=== PATIENT | male | born 1950 | race Caucasian/White ===

== ENCOUNTER 2018-01-05 23:18 | Observation (INO) | payer OTHER, MEDICARE ==
--- NOTE | 2018-01-06 00:50 | PDOC ---
History of Present Illness <Ursula Hernández - Last Filed: 01/06/18 05:14> - General History Source: Patient Exam Limitations: No Limitations - History of Present Illness Initial Comments: 01/06/18 01:49 67 y/o man with h/o HTN, HLD, CAD s/p PCI with 2 stents, DM, Glaucoma, RACHEL, BPH s/p bladder polypectomy and laser therapy presents to the ED for multiple episodes of alana hematuria since 10:30am this morning. Patient states that he has been yearly episodes of hematuria on and off for the past 15 years. Denies weakness, dysuria or abdominal pain. Urologist is Dr. Chopra. Due for a cytoscopy in January. 01/06/18 01:57 <Rich Casanova - Last Filed: 01/06/18 06:56> - General Chief Complaint: Hematuria Stated Complaint: PAIN Time Seen by Provider: 01/06/18 00:46 Past History <Ursula Hernández - Last Filed: 01/06/18 05:14> - Past Medical History Anemia: No Asthma: No Cancer: No Cardiac Disorders: Yes ([place] 2010/ stents) CVA: No COPD: No CHF: No Dementia: No Diabetes: No GI Disorders: Yes (HEMORRHOIDS,RECTAL BLEEDING) Disorders: Yes (BPH) HTN: Yes Hypercholesterolemia: Yes Liver Disease: No Seizures: No Thyroid Disease: No - Surgical History Abdominal Surgery: No Appendectomy: No Cardiac Surgery: Yes (CARDIAC STENT X2, 2009, 2010) Cholecystectomy: No Lung Surgery: No Neurologic Surgery: No Orthopedic Surgery: No - Immunization History Immunization Up to Date: Yes - Suicide/Smoking/Psychosocial Hx Smoking Status: No Smoking History: Never smoked Number of Cigarettes Smoked Daily: 0 Cigars Per Day: 0 Hx Alcohol Use: No Drug/Substance Use Hx: No Substance Use Type: None Hx Substance Use Treatment: No <Rich Casanova - Last Filed: 01/06/18 06:56> - Past Medical History Allergies/Adverse Reactions: Allergies Allergy/AdvReac Type Severity Reaction Status Date / Time No Known Drug Allergies Allergy Verified 01/05/18 23:27 Home Medications: Ambulatory Orders Amlodipine Besylate [Norvasc -] 5 mg PO DAILY 01/05/18 Ascorbate Calcium [Vitamin C] 500 mg PO DAILY 01/05/18 Bimatoprost [Lumigan] 1 drop IO DAILY 01/05/18 Carvedilol [Coreg -] 12.5 mg PO BID 01/05/18 Cholecalciferol (Vitamin D3) [Vitamin D3 -] 100 unit PO BID 01/05/18 Dicyclomine HCl [Bentyl -] 20 mg PO BID 01/05/18 Docusate Sodium [Colace] 300 mg PO HS 01/05/18 Dorzolamide HCl [Trusopt] 1 drop OS BID 01/05/18 Eplerenone [Inspra] 25 mg PO DAILY 01/05/18 Fluticasone Prop 0.05% Nasal [Flonase -] 1 - 2 spray NS DAILY 01/05/18 Gemfibrozil [Lopid -] 600 mg PO BID 01/05/18 Inulin/Chromium Picolinate [Fiber Gummies] 1 each PO BID 01/05/18 Multivit-Min/Iron Fum/Folic AC [Nptnh-Jpghumv-Ztoddrwv Tablet] 1 each PO DAILY 01/05/18 [place]-3/Dha/Epa/Fish Oil [Fish Oil 1,200 mg Softgel] 1 each PO BID 01/05/18 Prasterone (Dhea)/Calcium Carb [Dhea 50 mg Tablet] 1 each PO DAILY 01/05/18 Sacubitril/Valsartan [Entresto 97 mg-103 mg Tablet] 1 each PO BID 01/05/18 Silodosin [Rapaflo] 8 mg PO DAILY 01/05/18 Ubidecarenone/Vit E Acet [Co Q-10 100 mg Softgel] 1 each PO BID 01/05/18 Review of Systems - Review of Systems Able to Perform ROS?: Yes Is the patient limited [place] proficient: No Constitutional: No: Symptoms Reported HEENTM: No: Symptoms Reported Respiratory: No: Symptoms reported Cardiac (ROS): No: Symptoms Reported ABD/GI: No: Symptoms Reported : Yes: See HPI, Hematuria. No: Burning, Dysuria, Discharge, Frequency, Flank Pain Musculoskeletal: No: Symptoms Reported Integumentary: No: Symptoms Reported Neurological: No: Symptoms reported All Other Systems: Reviewed and Negative <Rich Casanova - Last Filed: 01/06/18 06:56> *Physical Exam - Vital Signs Last Vital Signs Temp Pulse Resp BP Pulse Ox 98.5 F 64 18 108/60 96 01/05/18 23:28 01/05/18 23:28 01/05/18 23:28 01/05/18 23:28 01/05/18 23:28 <Ursula Hernández - Last Filed: 01/06/18 05:14> - Vital Signs Last Vital Signs Temp Pulse Resp BP Pulse Ox 98.5 F 64 18 108/60 96 01/05/18 23:28 01/05/18 23:28 01/05/18 23:28 01/05/18 23:28 01/05/18 23:28 - Physical Exam General Appearance: Yes: Nourished, Appropriately Dressed. No: Apparent Distress HEENT: positive: EOMI, ASHOK Respiratory/Chest: positive: Lungs Clear, Normal Breath Sounds. negative: Chest Tender, Respiratory Distress Cardiovascular: positive: Regular Rhythm, Regular Rate, S1, S2 Gastrointestinal/Abdominal: positive: Normal Bowel Sounds, Soft, Distended. negative: Tender Extremity: positive: Normal Capillary Refill, Normal Inspection Integumentary: positive: Dry, Warm Neurologic: positive: Fully Oriented, Alert, Normal Mood/Affect <Rich Casanvoa - Last Filed: 01/06/18 06:56> ED Treatment Course - LABORATORY CBC & Chemistry Diagram: 01/06/18 01:41 01/06/18 01:41 - ADDITIONAL ORDERS Additional order review: Laboratory Results 01/06/18 01/05/18 01:41 23:36 Sodium 138 Potassium 4.0 Chloride 104 Carbon Dioxide 25 Anion Gap 9 BUN 15 D Creatinine 1.4 H Creat Clearance w eGFR 50.25 Random Glucose 167 H D Calcium 9.8 Total Bilirubin 0.9 AST 17 ALT 27 Alkaline Phosphatase 47 Total Protein 8.1 Albumin 4.7 Urine Color Red Urine Appearance Turdid Urine pH Ur Specific [place] Urine Protein Urine Glucose (UA) Urine Ketones Urine Blood Urine Nitrite Urine Bilirubin Urine Urobilinogen Ur Leukocyte Esterase 01/06/18 01:41 RBC 5.04 MCV 95.8 MCHC 33.9 RDW 13.2 MPV 9.1 Neutrophils % 75.5 D Lymphocytes % 17.4 D Monocytes % 5.6 Eosinophils % 1.0 Basophils % 0.5 - RADIOLOGY Radiology Studies Ordered: Category Date Time Status CHEST X-RAY PORTABLE* [RAD] Stat Radiology 01/06/18 04:05 Ordered <Ursula Hernández - Last Filed: 01/06/18 05:14> - LABORATORY CBC & Chemistry Diagram: 01/06/18 01:41 01/06/18 01:41 <Rich Casanova - Last Filed: 01/06/18 06:56> Medical Decision Making - Medical Decision Making 01/06/18 06:48 Patient not anemic, labs wml. Patient to be admitted to hospitalist for evaluation of hematuria and possible cytoscopy by Dr. Chopra. Alana red blood after straight catheter. 01/06/18 06:56 <Rich Casanova - Last Filed: 01/06/18 06:56> *DC/Admit/Observation/Transfer - Discharge Dispostion Admit: Yes <Ursula Hernández - Last Filed: 01/06/18 05:14> <Rich Casanova - Last Filed: 01/06/18 06:56> Diagnosis at time of Disposition: Hematuria, Abdominal pain, Inability to urinate - Discharge Dispostion Condition at time of disposition: Guarded
[2018-01-06 01:07] LABS: URINE APPEARANCE TURDID
[2018-01-06 01:12] LABS: URINE COLOR RED
[2018-01-06 01:53] LABS: BASO % 0.5 % (0-2.0); HEMATOCRIT 48.3 % (35.4-49); HEMOGLOBIN 16.4 GM/dL (11.7-16.9); LYMPH % 17.4 % (8-40); MCH 32.5 pg (25.7-33.7); MCHC 33.9 g/dl (32.0-35.9); MEAN CELL VOLUME 95.8 fl (80-96); MEAN PLT VOLUME 9.1 fl (7.5-11.1); MONO % 5.6 % (3.8-10.2); NEUT % 75.5 % (42.8-82.8); PLATELET COUNT 190 K/MM3 (134-434); RBC 5.04 M/mm3 (4.00-5.60); RDW 13.2 % (11.9-15.9); WHITE BLOOD COUNT 10.9 K/mm3 (4.0-10.0)
--- NOTE | 2018-01-06 02:00 | PDOC ---
Attending Attestation - Resident Resident Name: Rich Casanova - ED Attending Attestation I have performed the following: I have examined & evaluated the patient, The case was reviewed & discussed with the resident, I agree w/resident's findings & plan (devika) - HPI HPI: 01/06/18 01:59 Pt comes with gross hematuria that began today. 01/06/18 04:07 Pt has had this in the past and he has known BPH and mass in his bladder. Pt states that he comes because he has difficulty urinating and he has pain with urination. Pt has no fever and no chills. He appears well. however he has fullness of his bladder even after passing gross blood and attempts to urinate. - Physicial Exam PE: 01/06/18 04:09 Agree with resident exam. - Medical Decision Making 01/06/18 04:09 We paged pt's urologist - no answer. Pt will be admitted to observation for urology eval in the AM. We feel unconfortable placing padilla catheter and discharging patient, as pt will likely have catheter obstruction secondary to blood clots. Pt is due for cystoscopy on January 19. Perhaps pt can have the exam during this admission, given that he has gross bleeding thru his penis at this time. <Ursula Hernández - Last Filed: 01/06/18 04:07> Heart Score/ECG Review #1 01/06/18 06:38 Vent rate 60 bpm Normal sinus rhythm Left anterior fascicular block Septal infarct, age undetermined Abnormal ECG <Rishabh Dumont - Last Filed: 01/06/18 06:40>
[2018-01-06 02:21] LABS: ALBUMIN 4.7 g/dl (3.4-5.0); ANION GAP 9 (8-16); BILIRUBIN,TOTAL 0.9 mg/dL (0.2-1.0); BLOOD UREA NITROGEN 15 mg/dL (7-18); CALCIUM 9.8 mg/dL (8.5-10.1); CHLORIDE 104 mmol/L (98-107); CO2 25 mmol/L (21-32); CREATININE 1.4 mg/dL (0.7-1.3); GLUCOSE,RANDOM 167 mg/dL (74-106); SGOT/AST 17 U/L (15-37); SGPT/ALT 27 U/L (12-78); SODIUM 138 mmol/L (136-145); TOT PROT 8.1 g/dl (6.4-8.2)
[2018-01-06 02:22] LABS: ALK PHOS 47 U/L (45-117)
--- NOTE | 2018-01-06 05:17 | HP ---
CHIEF COMPLAINT: Hematuria PCP: Dr Boateng HISTORY OF PRESENT ILLNESS: This is a 67 y/o man who presents to the ED with alana hematuria since 10:30am yesterday. Patient reports having mini episodes of hematuria over the last few months- pending a Cystoscopy this January with Dr. Mike Chopra. Patient denies abdominal pain, dysuria. Patient denies fever, chills, cough, SOB, CP, N/V/D, constipation, melena, hematochezia ER course was notable for: (1) UA- Red, turbid (2) Cr 1.4 (3) Glucose 1.4 Recent Travel: None PAST MEDICAL HISTORY: HTN HLD CAD s/p PCI (2 stents) Pre diabetes (Diet/exercise) RACHEL Glaucoma BPH PAST SURGICAL HISTORY: s/p Bladder polypectomy, laser therapy s/p PCI stents x2 Bilateral Cataracts Social History: Smoking: Never Alcohol: Seldom Drugs: None Lives with Adult Son Family History: Non-Contributory Allergies No Known Drug Allergies Allergy (Verified 01/05/18 23:27) HOME MEDICATIONS: Home Medications Medication Instructions Recorded Amlodipine Besylate [Norvasc -] 5 mg PO DAILY 01/05/18 Ascorbate Calcium [Vitamin C] 500 mg PO DAILY 01/05/18 Bimatoprost [Lumigan] 1 drop IO DAILY 01/05/18 Carvedilol [Coreg -] 12.5 mg PO BID 01/05/18 Cholecalciferol (Vitamin D3) 100 unit PO BID 01/05/18 [Vitamin D3 -] Dicyclomine HCl [Bentyl -] 20 mg PO BID 01/05/18 Docusate Sodium [Colace] 300 mg PO HS 01/05/18 Dorzolamide HCl [Trusopt] 1 drop OS BID 01/05/18 Eplerenone [Inspra] 25 mg PO DAILY 01/05/18 Fluticasone Prop 0.05% Nasal 1 - 2 spray NS DAILY 01/05/18 [Flonase -] Gemfibrozil [Lopid -] 600 mg PO BID 01/05/18 Inulin/Chromium Picolinate [Fiber 1 each PO BID 01/05/18 Gummies] Multivit-Min/Iron Fum/Folic AC 1 each PO DAILY 01/05/18 [Tjrvb-Trwvtdc-Rwjcfdtn Tablet] [place]-3/Dha/Epa/Fish Oil [Fish Oil 1 each PO BID 01/05/18 1,200 mg Softgel] Prasterone (Dhea)/Calcium Carb 1 each PO DAILY 01/05/18 [Dhea 50 mg Tablet] Sacubitril/Valsartan [Entresto 97 1 each PO BID 01/05/18 mg-103 mg Tablet] Silodosin [Rapaflo] 8 mg PO DAILY 01/05/18 Ubidecarenone/Vit E Acet [Co Q-10 1 each PO BID 01/05/18 100 mg Softgel] REVIEW OF SYSTEMS CONSTITUTIONAL: Absent: fever, chills, diaphoresis, generalized weakness, malaise, loss of appetite, weight change HEENT: Absent: rhinorrhea, nasal congestion, throat pain, throat swelling, difficulty swallowing, mouth swelling, ear pain, eye pain, visual changes CARDIOVASCULAR: Absent: chest pain, syncope, palpitations, irregular heart rate, lightheadedness , peripheral edema RESPIRATORY: Absent: cough, shortness of breath, dyspnea with exertion, orthopnea, wheezing, stridor, hemoptysis GASTROINTESTINAL: Absent: abdominal pain, abdominal distension, nausea, vomiting, diarrhea, constipation, melena, hematochezia GENITOURINARY: hematuria Absent: dysuria, frequency, urgency, hesitancy, flank pain, genital pain MUSCULOSKELETAL: Absent: myalgia, arthralgia, joint swelling, back pain, neck pain SKIN: Absent: rash, itching, pallor HEMATOLOGIC/IMMUNOLOGIC: Absent: easy bleeding, easy bruising, lymphadenopathy, frequent infections ENDOCRINE: Absent: unexplained weight gain, unexplained weight loss, heat intolerance, cold intolerance NEUROLOGIC: Absent: headache, focal weakness or paresthesias, dizziness, unsteady gait, seizure, mental status changes, bladder or bowel incontinence PSYCHIATRIC: Absent: anxiety, depression, suicidal or homicidal ideation, hallucinations. PHYSICAL EXAMINATION Vital Signs - 24 hr 01/05/18 23:28 Temperature 98.5 F Pulse Rate 64 Respiratory 18 Rate Blood Pressure 108/60 O2 Sat by Pulse 96 Oximetry (%) GENERAL: Awake, alert, and fully oriented, in no acute distress. HEAD: Normal with no signs of trauma. EYES: Pupils equal, round and reactive to light, extraocular movements intact, sclera anicteric, conjunctiva clear. No lid lag. EARS, NOSE, THROAT: Ears normal, nares patent, oropharynx clear without exudates. Moist mucous membranes. NECK: Normal range of motion, supple without lymphadenopathy, JVD, or masses. LUNGS: Breath sounds equal, clear to auscultation bilaterally. No wheezes, and no crackles. No accessory muscle use. HEART: Regular rate and rhythm, normal S1 and S2 without murmur, rub or gallop. ABDOMEN: Soft, obese, nontender, not distended, normoactive bowel sounds, no guarding, no rebound, no masses. No hepatomegaly or splenomegaly. GENITOURINARY: Alana hematuria noted in urinal. No suprapubic TN MUSCULOSKELETAL: Normal range of motion at all joints. No bony deformities or tenderness. No CVA tenderness. UPPER EXTREMITIES: 2+ pulses, warm, well-perfused. No cyanosis. No clubbing. No peripheral edema. LOWER EXTREMITIES: 2+ pulses, warm, well-perfused. No calf tenderness. No peripheral edema. NEUROLOGICAL: Cranial nerves II-XII intact. Normal speech. Gait not observed PSYCHIATRIC: Cooperative. Good eye contact. Appropriate mood and affect. SKIN: Warm, dry, normal turgor, no rashes or lesions noted, normal capillary refill. Laboratory Results - last 24 hr 01/05/18 01/06/18 01/06/18 23:36 01:41 01:41 WBC 10.9 H D RBC 5.04 Hgb 16.4 Hct 48.3 MCV 95.8 MCH 32.5 MCHC 33.9 RDW 13.2 Plt Count 190 MPV 9.1 Neutrophils % 75.5 D Lymphocytes % 17.4 D Monocytes % 5.6 Eosinophils % 1.0 Basophils % 0.5 Sodium 138 Potassium 4.0 Chloride 104 Carbon Dioxide 25 Anion Gap 9 BUN 15 D Creatinine 1.4 H Creat Clearance w eGFR 50.25 Random Glucose 167 H D Calcium 9.8 Total Bilirubin 0.9 AST 17 ALT 27 Alkaline Phosphatase 47 Total Protein 8.1 Albumin 4.7 Urine Color Red Urine Appearance Turdid Urine pH Ur Specific [place] Urine Protein Urine Glucose (UA) Urine Ketones Urine Blood Urine Nitrite Urine Bilirubin Urine Urobilinogen Ur Leukocyte Esterase ASSESSMENT/PLAN: This is a 67 y/o man with a PMHx of: HTN, HLD, CAD s/p PCI (stents x2), BPH s/p bladder polypectomy, laser therapy, Prediabetes (Diet/Exercise controlled), RACHEL , Glaucoma placed on Observation for Hematuria. FEN -D5 1/2NS@42ml/hr -Replete lytes prn -NPO Code Status: Full Code Dispo: Observation Problem List - Problem (1) Hematuria Assessment/Plan: - Monitor urine output - Appreciate Urology Consult - NPO except home meds - Gentle IVF - Morales to be placed pending Urology recommendations - Repeat CBCD, BMP, Type n Screen, PT/INR in am Code(s): R31.9 - HEMATURIA, UNSPECIFIED (2) BPH (benign prostatic hyperplasia) Assessment/Plan: - See Above Code(s): N40.0 - BENIGN PROSTATIC HYPERPLASIA WITHOUT LOWER URINRY TRACT SYMP (3) CAD (coronary artery disease) Assessment/Plan: - s/p AK (2 stents) - Continue home meds Code(s): I25.10 - ATHSCL HEART DISEASE OF [place] CORONARY ARTERY W/O ANG PCTRS Qualifiers: Coronary Disease-Associated Artery/Lesion type: [place] artery [place] vs. transplanted heart: [place] heart Associated angina: without angina Qualified Code(s): I25.10 - Atherosclerotic heart disease of [place] coronary artery without angina pectoris (4) HTN (hypertension) Assessment/Plan: - Stable - Continue home meds with parameters Code(s): I10 - ESSENTIAL (PRIMARY) HYPERTENSION (5) HLD (hyperlipidemia) Assessment/Plan: - Stable - Continue Lopid Code(s): E78.5 - HYPERLIPIDEMIA, UNSPECIFIED (6) RACHEL (obstructive sleep apnea) Assessment/Plan: - CPAP hs Code(s): G47.33 - OBSTRUCTIVE SLEEP APNEA (ADULT) (PEDIATRIC) (7) DVT prophylaxis Assessment/Plan: - OOB - SCDs - Hold ACs secondary to Hematuria Code(s): IPV0321 - Visit type - Emergency Visit Emergency Visit: Yes ED Registration Date: 01/05/18 Care time: The patient presented to the Emergency Department on the above date and was hospitalized for further evaluation of their emergent condition. - New Patient This patient is new to me today: Yes Date on this admission: 01/06/18 - Critical Care Critical Care patient: No
[2018-01-06] MEDS ORDERED: DEXTROSE 5%-0.45% SALINE 1,000 ML IV SCH ×2 (05:30→15:17)
[2018-01-06] MEDS ORDERED: TAMSULOSIN HCL 0.4 MG CAP.ER.24H (FP) PO SCH (08:30)
[2018-01-06 09:03] LABS: BASO % 0.3 % (0-2.0); HEMATOCRIT 45.1 % (35.4-49); HEMOGLOBIN 15.2 GM/dL (11.7-16.9); LYMPH % 26.9 % (8-40); MCH 32.3 pg (25.7-33.7); MCHC 33.7 g/dl (32.0-35.9); MEAN CELL VOLUME 95.9 fl (80-96); MONO % 8.5 % (3.8-10.2); NEUT % 63.3 % (42.8-82.8); PLATELET COUNT 167 K/MM3 (134-434); RDW 13.2 % (11.9-15.9); WHITE BLOOD COUNT 6.7 K/mm3 (4.0-10.0)
[2018-01-06 09:34] LABS: INR 1.19 (0.82-1.09); PROTHROMBIN TIME (PATIENT) 13.4 SEC (9.98-11.88)
[2018-01-06 09:37] LABS: ANION GAP 8 (8-16); BLOOD UREA NITROGEN 18 mg/dL (7-18); CALCIUM 8.5 mg/dL (8.5-10.1); CHLORIDE 105 mmol/L (98-107); CO2 25 mmol/L (21-32); CREATININE 1.7 mg/dL (0.7-1.3); GLUCOSE,RANDOM 171 mg/dL (74-106); SODIUM 138 mmol/L (136-145)
[2018-01-06] MEDS ORDERED: EPLERENONE 25 MG TABLET PO SCH (10:00)
[2018-01-06] MEDS: SACUBITRIL/VALSARTAN 97 MG-103 MG TABLET PO SCH (10:40)
[2018-01-06] MEDS: OMEGA-3 ACID ETHYL ESTERS (FATTY-ACIDS) 1 GM CAPSULE (FP) PO SCH ×2 (10:40→23:21)
[2018-01-06] MEDS: amLODIPine BESYLATE 5 MG TABLET (FP) PO SCH (10:40)
[2018-01-06] MEDS: CARVEDILOL 12.5 MG TABLET (FP) PO SCH ×2 (10:40→23:21)
[2018-01-06] MEDS: GEMFIBROZIL 600 MG TABLET (FP) PO SCH ×2 (10:40→23:21)
[2018-01-06] MEDS: DORZOLAMIDE 2% HCL OPHTHALMIC SOLUTION 10 ML BOTTLE OS SCH (10:41)
--- NOTE | 2018-01-06 12:13 | EKG ---
Test Reason : Blood Pressure : / mmHG Vent. Rate : 060 BPM Atrial Rate : 060 BPM P-R Int : 162 ms QRS Dur : 110 ms QT Int : 396 ms P-R-T Axes : 029 -51 071 degrees QTc Int : 396 ms NORMAL SINUS RHYTHM LEFT ANTERIOR FASCICULAR BLOCK SEPTAL INFARCT (CITED ON OR BEFORE 10-SEP-2012) ABNORMAL ECG WHEN COMPARED WITH ECG OF 12-JUL-2016 15:34, FUSION COMPLEXES ARE NO LONGER PRESENT NONSPECIFIC T WAVE ABNORMALITY, WORSE IN LATERAL LEADS QT HAS SHORTENED Confirmed by RUKHSANA MUNOZ MD ([id number]) on 01/06/2018 12:12:59 PM Referred By: Confirmed By:RUKHSANA MUNOZ MD
[2018-01-06] MEDS ORDERED: amLODIPine BESYLATE 5 MG TABLET (FP) PO ONE (15:12)
[2018-01-06] MEDS ORDERED: LACTATED RINGERS SOLUTION 1,000 ML/1,000 ML INFUS.BAG IV SCH (16:15)
[2018-01-06] MEDS ORDERED: CEFTRIAXONE 2 GM-D5W BAG 2 GM/50 ML BAG IVPB SCH (16:15)
[2018-01-06] MEDS ORDERED: SODIUM CHLORIDE 1,000 ML IV SCH (16:15)
[2018-01-06] MEDS ORDERED: CEFTRIAXONE 1 G/50 ML PREMIX 50 ML IVPB SCH (16:15)
[2018-01-06] MEDS ORDERED: CEFTRIAXONE 2 GM/100 ML BAG IVPB ONE (16:43)
[2018-01-06] MEDS: EPLERENONE 25 MG TABLET PO SCH (17:06)
--- NOTE | 2018-01-06 22:23 | HOSP ---
Subjective - Review of Symptoms Events since last encounter: Patient continues to have hematuria. Otherwise comfortable, no fever or chills, no shortness of breath. Discussed with , will see the patient in am , patient is going for cystoscopy in am. Id was consulted added IV Rocephin 2gm now and before the procedure. UA and urine culture was ordered. Vital Signs Temperature 98.5 F 01/05/18 23:28 Pulse Rate 55 L 01/06/18 15:45 Respiratory Rate 18 01/06/18 15:45 Blood Pressure 115/69 01/06/18 15:45 O2 Sat by Pulse Oximetry (%) 98 01/06/18 15:45 CBCD WBC 6.7 K/mm3 (4.0-10.0) D 01/06/18 08:20 RBC 4.70 M/mm3 (4.00-5.60) 01/06/18 08:20 Hgb 15.2 GM/dL (11.7-16.9) 01/06/18 08:20 Hct 45.1 % (35.4-49) 01/06/18 08:20 MCV 95.9 fl (80-96) 01/06/18 08:20 MCHC 33.7 g/dl (32.0-35.9) 01/06/18 08:20 RDW 13.2 % (11.9-15.9) 01/06/18 08:20 Plt Count 167 K/MM3 (134-434) 01/06/18 08:20 MPV 9.0 fl (7.5-11.1) 01/06/18 08:20 CMP Sodium 138 mmol/L (136-145) 01/06/18 08:20 Potassium 5.0 mmol/L (3.5-5.1) D 01/06/18 08:20 Chloride 105 mmol/L (98-107) 01/06/18 08:20 Carbon Dioxide 25 mmol/L (21-32) 01/06/18 08:20 Anion Gap 8 (8-16) 01/06/18 08:20 BUN 18 mg/dL (7-18) 01/06/18 08:20 Creatinine 1.7 mg/dL (0.7-1.3) H D 01/06/18 08:20 Creat Clearance w eGFR 50.25 (>60) 01/06/18 01:41 Random Glucose 171 mg/dL (74-106) H 01/06/18 08:20 Calcium 8.5 mg/dL (8.5-10.1) 01/06/18 08:20 Total Bilirubin 0.9 mg/dL (0.2-1.0) 01/06/18 01:41 AST 17 U/L (15-37) 01/06/18 01:41 ALT 27 U/L (12-78) 01/06/18 01:41 Alkaline Phosphatase 47 U/L (45-117) 01/06/18 01:41 Total Protein 8.1 g/dl (6.4-8.2) 01/06/18 01:41 Albumin 4.7 g/dl (3.4-5.0) 01/06/18 01:41 Current Medications Generic Name Dose Route Start Last Admin Trade Name Freq PRN Reason Stop Dose Admin Amlodipine Besylate 5 mg 01/06/18 10:00 01/06/18 10:40 Norvasc - PO 5 mg DAILY BENJA Administration Carvedilol 12.5 mg 01/06/18 10:00 01/06/18 10:40 Coreg - PO 12.5 mg BID BENJA Administration Dorzolamide HCl 1 drop 01/06/18 10:00 01/06/18 10:41 Trusopt 2% OS 1 drop BID BENJA Administration Eplerenone 25 mg 01/06/18 16:00 01/06/18 17:06 Eplerenone PO 25 mg DAILY@1600 BENJA Administration Gemfibrozil 600 mg 01/06/18 10:00 01/06/18 10:40 Lopid - PO 600 mg BID BENJA Administration Sodium Chloride 1,000 mls @ 75 mls/hr 01/06/18 16:15 01/06/18 17:02 Normal Saline - IV 01/07/18 05:34 75 mls/hr ASDIR BENJA Administration CEFTRIAXONE IN IS-OSM DEXTROSE 2 gm in 50 mls @ 100 mls/hr 01/06/18 16:15 17:02 Ceftriaxone 2 Gm-D5w Bag IVPB 100 mls/hr DAILY BENJA Administration Non-Formulary Medication 1 drop 01/06/18 10:00 Bimatoprost [Lumigan] IO DAILY BENJA Mefdh-7-[id number] Ethyl Esters 1 gm 01/06/18 10:00 01/06/18 10:40 Lovaza - PO 1 gm BID [facility] Administration Tamsulosin HCl 0.4 mg 01/06/18 22:00 Flomax - PO [facility] Home Medications Medication Instructions Recorded Amlodipine Besylate [Norvasc -] 5 mg PO DAILY 01/05/18 Ascorbate Calcium [Vitamin C] 500 mg PO DAILY 01/05/18 Bimatoprost [Lumigan] 1 drop IO DAILY 01/05/18 Carvedilol [Coreg -] 12.5 mg PO BID 01/05/18 Cholecalciferol (Vitamin D3) 100 unit PO BID 01/05/18 [Vitamin D3 -] Dicyclomine HCl [Bentyl -] 20 mg PO BID 01/05/18 Docusate Sodium [Colace] 300 mg PO HS 01/05/18 Dorzolamide HCl [Trusopt] 1 drop OS BID 01/05/18 Eplerenone [Inspra] 25 mg PO DAILY 01/05/18 Fluticasone Prop 0.05% Nasal 1 - 2 spray NS DAILY 01/05/18 [Flonase -] Gemfibrozil [Lopid -] 600 mg PO BID 01/05/18 Inulin/Chromium Picolinate [Fiber 1 each PO BID 01/05/18 Gummies] Multivit-Min/Iron Fum/Folic AC 1 each PO DAILY 01/05/18 [Ydqyf-Bdxosbn-Qxwlihkj Tablet] [place]-3/Dha/Epa/Fish Oil [Fish Oil 1 each PO BID 01/05/18 1,200 mg Softgel] Prasterone (Dhea)/Calcium Carb 1 each PO DAILY 01/05/18 [Dhea 50 mg Tablet] Sacubitril/Valsartan [Entresto 97 1 each PO BID 01/05/18 mg-103 mg Tablet] Silodosin [Rapaflo] 8 mg PO DAILY 01/05/18 Ubidecarenone/Vit E Acet [Co Q-10 1 each PO BID 01/05/18 100 mg Softgel] Physical Examination Vital Signs: Vital Signs Temperature 98.5 F 01/05/18 23:28 Pulse Rate 55 L 01/06/18 15:45 Respiratory Rate 18 01/06/18 15:45 Blood Pressure 115/69 01/06/18 15:45 O2 Sat by Pulse Oximetry (%) 98 02/17/18 15:45 Labs: CBC, BMP 01/06/18 08:20 01/06/18 08:20
[2018-01-06] MEDS ORDERED: CARVEDILOL 12.5 MG TABLET (FP) ONE (23:16)
[2018-01-06] MEDS: TAMSULOSIN HCL 0.4 MG CAP.ER.24H (FP) PO SCH (23:22)
[2018-01-07 01:15] LABS: URINE APPEARANCE TURBID
[2018-01-07 01:33] LABS: URINE COLOR RED
[2018-01-07 02:35] VITALS: BMI 30.9
[2018-01-07] MEDS ORDERED: PT OWN MED DRAWER 7, Y5N ONE ×2 (05:20→22:05)
[2018-01-07] MEDS: CEFTRIAXONE 2 GM-D5W BAG 2 GM/50 ML BAG IVPB SCH (07:05)
--- NOTE | 2018-01-07 07:50 | PN ---
<Artur Lynch - Last Filed: 01/07/18 19:20> Physical Exam: SUBJECTIVE: Patient seen and examined at bedside. S/P cystoscopy , and bladder clots evacuation. padilla in place with maroon urine OBJECTIVE: Vital Signs Period Temp Pulse Resp BP Sys/Pascual Pulse Ox Last 24 Hr 97.9 F-98 F 55-68 18-20 90-140/50-72 95-98 GENERAL: The patient is awake, alert, and fully oriented, in no acute distress. HEAD: Normal with no signs of trauma. EYES: sclera anicteric, conjunctiva clear. ENT: moist mucous membranes. NECK: full range of motion, supple. LUNGS: Breath sounds equal, clear to auscultation bilaterally, no wheezes, no crackles, no accessory muscle use. HEART: Regular rate and rhythm, S1, S2 without murmur, rub or gallop. ABDOMEN: Obese, Soft, nontender, nondistended, normoactive bowel sounds, no guarding, Padilla in place with marroon urine EXTREMITIES: 2+ pulses, warm, well-perfused, no edema. NEUROLOGICAL: No focal deficit . Normal speech, gait not observed. PSYCH: Normal mood, normal affect. SKIN: Warm, dry, Laboratory Results - last 24 hr 01/06/18 01/06/18 01/06/18 08:20 08:20 08:20 WBC 6.7 D RBC 4.70 Hgb 15.2 Hct 45.1 MCV 95.9 MCH 32.3 MCHC 33.7 RDW 13.2 Plt Count 167 MPV 9.0 Neutrophils % 63.3 Lymphocytes % 26.9 D Monocytes % 8.5 Eosinophils % 1.0 Basophils % 0.3 PT with INR 13.40 H INR 1.19 H Sodium 138 Potassium 5.0 D Chloride 105 Carbon Dioxide 25 Anion Gap 8 BUN 18 Creatinine 1.7 H D Random Glucose 171 H Calcium 8.5 Urine Color Urine Appearance Urine pH Ur Specific [place] Urine Protein Urine Glucose (UA) Urine Ketones Urine Blood Urine Nitrite Urine Bilirubin Urine Urobilinogen Ur Leukocyte Esterase Blood Type Antibody Screen 01/06/18 01/06/18 08:20 23:35 WBC RBC Hgb Hct MCV MCH MCHC RDW Plt Count MPV Neutrophils % Lymphocytes % Monocytes % Eosinophils % Basophils % PT with INR INR Sodium Potassium Chloride Carbon Dioxide Anion Gap BUN Creatinine Random Glucose Calcium Urine Color Red Urine Appearance Turbid Urine pH Ur Specific [place] Urine Protein Urine Glucose (UA) No Result Required. Urine Ketones Urine Blood Urine Nitrite Urine Bilirubin Urine Urobilinogen Ur Leukocyte Esterase Blood Type O POSITIVE Antibody Screen Negative Active Medications Generic Name Dose Route Start Last Admin Trade Name Darnell PRN Reason Stop Dose Admin Amlodipine Besylate 5 mg 01/06/18 10:00 01/06/18 10:40 Norvasc - PO 5 mg DAILY BENJA Administration Carvedilol 12.5 mg 01/06/18 10:00 01/06/18 23:21 Coreg - PO 12.5 mg BID BENJA Administration Dorzolamide HCl 1 drop 01/06/18 10:00 01/06/18 10:41 Trusopt 2% OS 1 drop BID BENJA Administration Eplerenone 25 mg 01/06/18 16:00 01/06/18 17:06 Eplerenone PO 25 mg DAILY@1600 BENJA Administration Gemfibrozil 600 mg 01/06/18 10:00 01/06/18 23:21 Lopid - PO 600 mg BID BENJA Administration CEFTRIAXONE IN IS-OSM DEXTROSE 2 gm in 50 mls @ 100 mls/hr 01/07/18 08:00 07:05 Ceftriaxone 2 Gm-D5w Bag IVPB 100 mls/hr DAILY BENJA Administration Latanoprost 1 drop 01/07/18 22:00 Xalatan 0.005% Eye Drops - OU HS [facility] [id number]-4-Kbkw Ethyl Esters 1 gm 01/06/18 10:00 01/06/18 23:21 Lovaza - PO 1 gm BID BENJA Administration Tamsulosin HCl 0.4 mg 01/06/18 22:00 01/06/18 23:22 Flomax - PO 0.4 mg HS BENJA Administration CBC, BMP 01/07/18 07:30 01/07/18 07:30 ASSESSMENT/PLAN: This is a 67 y/o man who presents to the ED with alana hematuria , admitted for cystoscopy. # Hematuria,with BPH (benign prostatic hyperplasia) * S/P Cystoscopy today to evacuate clotting from the bladder. * Monitor urine output * urology on board * cont IVF * Maintain Padilla * continue Flomax 0.4 mg po daily , * continue Ceftriaxone 2 g ivbp daily # KYLE due to BPH * Monitor BUN/Cr , today 15/12.8 * Unknown base line * maintain Padilla # CAD (coronary artery disease) * s/p AR (2 stents) * Continue home meds # HTN (hypertension), stable * Continue home meds with parameters Norvasc 5 mg po daily, Coreg 12.5 mg po BID * cont Entresto 1 tab BID (97-103) * cont Eplerenon 25 mg po daily #HLD (hyperlipidemia) * Continue Lopid (Gemfibrizole ) 600 mg po BID # RACHEL (obstructive sleep apnea) * continue CPAP at night # DVT prophylaxis * OOB, SCDs, Hold ACs due to Hematuria #FEN * D5 1/2NS@125 cc/hr * Replete lytes as needed * na controlled diet #Dispo: Observation #Code Status: Full Code Visit type - Emergency Visit Emergency Visit: Yes ED Registration Date: 01/06/18 Care time: The patient presented to the Emergency Department on the above date and was hospitalized for further evaluation of their emergent condition. - New Patient This patient is new to me today: Yes Date on this admission: 01/07/18 - Critical Care Critical Care patient: No - Discharge Referral Referred to [facility] No <Dane Tapia - Last Filed: 01/08/18 13:59> Physical Exam: Patient seen and examined agree with the resident's plan.
[2018-01-07] MEDS ORDERED: CEFTRIAXONE 2 GM-D5W BAG 2 GM/50 ML BAG IVPB ONE (08:00)
[2018-01-07] MEDS ORDERED: PROPOFOL 20 ML ONE (08:26)
[2018-01-07] MEDS ORDERED: SUCCINYLCHOLINE CHLORIDE 200 MG/10 ML VIAL ONE (08:27)
[2018-01-07] MEDS ORDERED: MIDAZOLAM HCL 2 MG/2 ML SINGLE DOSE VIAL ONE ×2 (08:27→09:03)
[2018-01-07 08:36] LABS: ANION GAP 9 (8-16); BLOOD UREA NITROGEN 26 mg/dL (7-18); CALCIUM 8.4 mg/dL (8.5-10.1); CHLORIDE 108 mmol/L (98-107); CO2 24 mmol/L (21-32); CREATININE 1.8 mg/dL (0.7-1.3); GLUCOSE,RANDOM 124 mg/dL (74-106); POTASSIUM 4.2 mmol/L (3.5-5.1); SODIUM 141 mmol/L (136-145)
--- NOTE | 2018-01-07 08:36 | PN ---
Progress Note (short form) - Note Progress Note: urology note. pt. with gross,totai,painless hematuria . abd-,bladder soft,n/t bs ++bladder soft,n/t labs-noted plan or for cysyo, clot evacuatin and poss blabber resection.
[2018-01-07] MEDS ORDERED: DEXAMETHASONE SOD PHOSPHATE 4 MG/1 ML VIAL ONE (08:44)
[2018-01-07] MEDS ORDERED: ePHEDrine SULFATE 50 MG/1 ML AMPULE ONE (08:46)
[2018-01-07 08:53] LABS: BASO % 0.4 % (0-2.0); EOS % 1.5 % (0-4.5); HEMATOCRIT 38.1 % (35.4-49); HEMOGLOBIN 12.7 GM/dL (11.7-16.9); LYMPH % 27.4 % (8-40); MCH 32.2 pg (25.7-33.7); MCHC 33.4 g/dl (32.0-35.9); MEAN CELL VOLUME 96.4 fl (80-96); MEAN PLT VOLUME 9.6 fl (7.5-11.1); NEUT % 60.7 % (42.8-82.8); PLATELET COUNT 145 K/MM3 (134-434); RBC 3.95 M/mm3 (4.00-5.60); WHITE BLOOD COUNT 5.9 K/mm3 (4.0-10.0)
[2018-01-07] MEDS ORDERED: PROMETHAZINE HCL 25 MG/1 ML VIAL IVPUSH PRN (10:31)
[2018-01-07] MEDS: SODIUM CHLORIDE 0.45% 1,000 ML IV SCH ×2 (12:12→22:51)
[2018-01-07] MEDS: DORZOLAMIDE 2% HCL OPHTHALMIC SOLUTION 10 ML BOTTLE OS SCH ×3 (12:13→22:22)
[2018-01-07] MEDS: GEMFIBROZIL 600 MG TABLET (FP) PO SCH ×2 (12:42→22:21)
[2018-01-07] MEDS: OMEGA-3 ACID ETHYL ESTERS (FATTY-ACIDS) 1 GM CAPSULE (FP) PO SCH ×2 (12:42→22:21)
[2018-01-07] MEDS: CARVEDILOL 12.5 MG TABLET (FP) PO SCH ×2 (12:43→22:22)
[2018-01-07] MEDS: amLODIPine BESYLATE 5 MG TABLET (FP) PO SCH (12:43)
--- NOTE | 2018-01-07 14:55 | PN ---
Progress Note, Physician History of Present Illness: ID Consult dictated Gross hematuria UTI symptoms Hx E coli Urosepsis Pending c/s empiric ceftriaxone - Current Medication List Current Medications: Active Medications Amlodipine Besylate (Norvasc -) 5 mg PO DAILY [facility] Last Admin: 01/07/18 12:43 Dose: 5 mg Carvedilol (Coreg -) 12.5 mg PO BID [facility] Last Admin: 01/07/18 12:43 Dose: 12.5 mg Dorzolamide HCl (Trusopt 2%) 1 drop OS BID [facility] Last Admin: 01/07/18 12:43 Dose: 1 drop Eplerenone (Eplerenone) 25 mg PO DAILY@1600 [facility] Last Admin: 01/06/18 17:06 Dose: 25 mg Gemfibrozil (Lopid -) 600 mg PO BID [facility] Last Admin: 01/07/18 12:42 Dose: 600 mg CEFTRIAXONE IN IS-OSM DEXTROSE (Ceftriaxone 2 Gm-D5w Bag) 2 gm in 50 mls @ 100 mls/hr IVPB DAILY [facility] Last Admin: 01/07/18 07:05 Dose: 100 mls/hr Sodium Chloride (1/2 Normal Saline) 1,000 mls @ 125 mls/hr IV ASDIR [facility] Stop: 01/08/18 18:44 Last Admin: 01/07/18 12:12 Dose: 0 mls Latanoprost (Xalatan 0.005% Eye Drops -) 1 drop OU [facility] [id number]-[id number] Ethyl Esters (Lovaza -) 1 gm PO BID [facility] Last Admin: 01/07/18 12:42 Dose: 1 gm Tamsulosin HCl (Flomax -) 0.4 mg PO [facility] Last Admin: 01/06/18 23:22 Dose: 0.4 mg - Objective Vital Signs: Vital Signs Temperature 98.7 F 01/07/18 13:00 Pulse Rate 86 01/07/18 13:00 Respiratory Rate 18 01/07/18 13:00 Blood Pressure 105/70 01/07/18 13:00 O2 Sat by Pulse Oximetry (%) 98 01/07/18 11:50 Labs: CBC, BMP 01/07/18 07:30 01/07/18 07:30 INR, PTT INR 1.19 (0.82-1.09) H 01/06/18 08:20
--- NOTE | 2018-01-07 16:23 | CONS ---
DATE OF CONSULTATION: DATE OF DICTATION: 01/07/2018 The patient is a 67-year-old male who presents to the emergency room with gross total painless hematuria since 10 o'clock on the morning of January 06, 2018. Patient reports having intermittent gross hematuria over the past several weeks. He was to undergo cystoscopy in January. The patient denies any abdominal pain, dysuria, frequency, chills, fever, shortness of breath, burning on urination, constipation, melena, or hematochezia. He denies any anticoagulation. Patient does have history of high blood pressure, dyslipidemia, coronary artery disease, status post angio stents. He also has adult-onset diabetes. He has osteoarthritis, glaucoma, and benign prostatic hypertrophy. He did undergo resection of a bladder lesion a year ago. He has undergone angioplasty as well as bilateral cataracts. The patient drink socially, denies any alcohol ingestion. He is on Norvasc, Coreg, Bentyl, Colace, Inspra, Flonase, Lopid, insulin, omega-3, as well as multivitamins, Entresto, and Coenzyme 10. He appeared to be in no apparent distress. His abdomen is soft. No suprapubic tenderness is elicited. There was no suprapubic distention. Genitalia are atraumatic. Prostate is 3+ smooth, benign. Extremities reveal full range of motion with no cyanosis, clubbing, or edema. Blood pressure was 108/60 in the emergency room, respirations were 20, pulse is 64, temperature is 98.5. The patient underwent a CBC, which revealed a white count of 10.9, hemoglobin of 16.4 and hematocrit 48.3, platelets were 190, random glucose was 167. The urine revealed a large amount of blood, negative nitrites. The patient is admitted to the hospital with gross total painless hematuria. He was commenced on IV antibiotics as well as IV fluids. The patient also received Rocephin IM. He will undergo a cystoscopy, clot evacuation, and possible bladder tumor resection. Will follow with you. CADE DOWD M.D. [id number]
--- NOTE | 2018-01-07 17:01 | CONS ---
DATE OF CONSULTATION: DATE OF DICTATION: 01/07/2018 The patient is a 67-year-old male who is evaluated for urinary tract infection. He has a history of bladder polyps and has had recurrent episodes of gross hematuria. He is status post bladder polypectomy and laser surgery in the past. He was admitted with a 1-day history of gross hematuria, dysuria, and difficulty voiding. He was seen in consultation by Urology. He was taken to the OR for cystoscopy. Pre procedure, he was treated with ceftriaxone. He now has continuous bladder irrigation in progress. The patient has had a history of E coli urosepsis in June 2016. He denies any associated fever or chills. Past medical history positive for bladder polyp, BPH, hypertension, hyperlipidemia, coronary artery disease, diabetes mellitus, obstructive sleep apnea. PAST SURGICAL HISTORY: Status post bladder polypectomy and laser surgery, history of coronary artery stents. No known allergies. Medications include Norvasc, vitamin C, Lumigan, Coreg, Bentyl, Colace, Lopid. SOCIAL HISTORY: He resides at home. Nonsmoker, nondrinker. SYSTEMS REVIEW: Neurologic: No loss of consciousness, seizure activity, or focal weakness. Cardiac: Negative chest pain or palpitations. Respiratory: Negative cough or sputum production. Gastrointestinal: Negative vomiting or diarrhea. Genitourinary: As per HPI. LABORATORY DATA: White count 4.9, hematocrit 38.1, platelet count 145. BUN 26, creatinine 1.8. Urine culture pending. Urine was described as grossly bloody. PHYSICAL EXAMINATION: General: He is awake and alert, he is in no acute distress. Vital Signs: Temperature 98.7. Blood pressure 105/70. Pulse 86, regular. Respirations 18 per minute. Eyes: Sclerae anicteric. Heart Sounds: S1, S2. Lungs: Clear. Abdomen: Soft. Suprapubic tenderness to palpation. Extremities: 1+ edema. IMPRESSION: 1. Gross hematuria. 2. Urinary tract infection symptoms. 3. History of E coli urosepsis. Patient was given a dose of ceftriaxone prior to the cystoscopy. Will continue, pending urine culture. Thank you for the kind referral. SHIVAM HENRIQUEZ M.D. [id number]
[2018-01-07] MEDS: EPLERENONE 25 MG TABLET PO SCH (17:11)
--- NOTE | 2018-01-07 19:49 | CONSULT ---
Consult Consult Specialty:: Nephrology Reason for Consultation:: KYLE - History of Present Illness Chief Complaint: hematuria History of Present Illness: Pt is a 67 year old male with pmhx of htn, hld, CAD s/p PCI, DM, jeri, bph and bladder polyps who presents to the ER with hematuria. He has had this in the past. He was found to have elevated creatinine that has been rising. He was takes for cysto where a clot was evacuated. He denies shortness of breath. He denies chest pain or palpitations. He denies fevers or chills. He denies history of CKD. - History Source History Provided By: Patient, Medical Record - Past Medical History Cardio/Vascular: Yes: CAD, HTN Pulmonary: Yes: Sleep Apnea Renal/: Yes: BPH, UTI - Past Surgical History Past Surgical History: Yes: Prostatectomy, Stent (2009) - Alcohol/Substance Use Hx Alcohol Use: No - Smoking History Smoking history: Never smoked Aproximately how many cigarettes per day: 0 - Social History Usual Living Arrangement: With Child Home Medications - Allergies Allergies/Adverse Reactions: Allergies Allergy/AdvReac Type Severity Reaction Status Date / Time No Known Drug Allergies Allergy Verified 01/05/18 23:27 - Home Medications Home Medications: Ambulatory Orders Amlodipine Besylate [Norvasc -] 5 mg PO DAILY 01/05/18 Ascorbate Calcium [Vitamin C] 500 mg PO DAILY 01/05/18 Bimatoprost [Lumigan] 1 drop IO DAILY 01/05/18 Carvedilol [Coreg -] 12.5 mg PO BID 01/05/18 Cholecalciferol (Vitamin D3) [Vitamin D3 -] 100 unit PO BID 01/05/18 Dicyclomine HCl [Bentyl -] 20 mg PO BID 01/05/18 Docusate Sodium [Colace] 300 mg PO HS 01/05/18 Dorzolamide HCl [Trusopt] 1 drop OS BID 01/05/18 Eplerenone [Inspra] 25 mg PO DAILY 01/05/18 Fluticasone Prop 0.05% Nasal [Flonase -] 1 - 2 spray NS DAILY 01/05/18 Gemfibrozil [Lopid -] 600 mg PO BID 01/05/18 Inulin/Chromium Picolinate [Fiber Gummies] 1 each PO BID 01/05/18 Multivit-Min/Iron Fum/Folic AC [Nlxdv-Joycjft-Ckmhxvpu Tablet] 1 each PO DAILY 01/05/18 [place]-3/Dha/Epa/Fish Oil [Fish Oil 1,200 mg Softgel] 1 each PO BID 01/05/18 Prasterone (Dhea)/Calcium Carb [Dhea 50 mg Tablet] 1 each PO DAILY 01/05/18 Sacubitril/Valsartan [Entresto 97 mg-103 mg Tablet] 1 each PO BID 01/05/18 Silodosin [Rapaflo] 8 mg PO DAILY 01/05/18 Ubidecarenone/Vit E Acet [Co Q-10 100 mg Softgel] 1 each PO BID 01/05/18 Family Disease History - Family Disease History Family Disease History: Diabetes: Brother Review of Systems - Review of Systems Constitutional: reports: No Symptoms Eyes: reports: No Symptoms HENT: reports: No Symptoms Neck: reports: No Symptoms Cardiovascular: reports: No Symptoms Respiratory: reports: No Symptoms Gastrointestinal: reports: No Symptoms Genitourinary: reports: Hematuria Musculoskeletal: reports: No Symptoms Integumentary: reports: No Symptoms Neurological: reports: No Symptoms Endocrine: reports: No Symptoms Hematology/Lymphatic: reports: No Symptoms Physical Exam Vital Signs: Vital Signs Temperature 98.7 F 01/07/18 13:00 Pulse Rate 68 01/07/18 17:00 Respiratory Rate 18 01/07/18 17:00 Blood Pressure 106/60 01/07/18 17:00 O2 Sat by Pulse Oximetry (%) 98 01/07/18 11:50 Constitutional: Yes: Calm Eyes: Yes: Conjunctiva Clear HENT: Yes: Atraumatic Neck: Yes: Supple Cardiovascular: Yes: S1, S2 Respiratory: Yes: CTA Bilaterally Gastrointestinal: Yes: Normal Bowel Sounds, Soft, Abdomen, Obese Renal/: Yes: Morales Present, Hematuria Musculoskeletal: Yes: WNL Edema: No Neurological: Yes: Oriented Psychiatric: Yes: Oriented Labs: CBC, BMP 01/07/18 07:30 01/07/18 07:30 Laboratory Tests 06/25/16 06/28/16 07/07/16 18:00 06:00 16:00 WBC Sodium Potassium Chloride Carbon Dioxide Anion Gap BUN Creatinine 1.5 H 1.1 1.0 Urine Color Urine Appearance 07/14/16 07/15/16 12/19/17 06:00 06:00 11:29 WBC Sodium Potassium Chloride Carbon Dioxide Anion Gap BUN Creatinine 0.9 1.0 1.2 Urine Color Urine Appearance 01/06/18 01/06/18 01/06/18 01:41 01:41 08:20 WBC 10.9 H D Sodium 138 Potassium 4.0 Chloride Carbon Dioxide Anion Gap BUN Creatinine 1.4 H 1.7 H D Urine Color Urine Appearance 01/06/18 01/07/18 01/07/18 23:35 07:30 07:30 WBC 5.9 Sodium 141 Potassium 4.2 Chloride 108 H Carbon Dioxide 24 Anion Gap 9 BUN 26 H D Creatinine 1.8 H Urine Color Red Urine Appearance Turbid Imaging - Results Chest X-ray: Report Reviewed Problem List - Problems (1) KYLE (acute kidney injury) Code(s): N17.9 - ACUTE KIDNEY FAILURE, UNSPECIFIED (2) HLD (hyperlipidemia) Code(s): E78.5 - HYPERLIPIDEMIA, UNSPECIFIED (3) HTN (hypertension) Code(s): I10 - ESSENTIAL (PRIMARY) HYPERTENSION (4) Hematuria Code(s): R31.9 - HEMATURIA, UNSPECIFIED Assessment/Plan Current Medications Generic Name Dose Route Start Last Admin Trade Name Freq PRN Reason Stop Dose Admin Amlodipine Besylate 5 mg 01/06/18 10:00 01/07/18 12:43 Norvasc - PO 5 mg DAILY BENJA Administration Carvedilol 12.5 mg 01/06/18 10:00 01/07/18 12:43 Coreg - PO 12.5 mg BID BENJA Administration Dorzolamide HCl 1 drop 01/06/18 10:00 01/07/18 12:13 Trusopt 2% OS 1 drop BID BENJA Administration Eplerenone 25 mg 01/06/18 16:00 01/07/18 17:11 Eplerenone PO Not Given DAILY@1600 BENJA Gemfibrozil 600 mg 01/06/18 10:00 01/07/18 12:42 Lopid - PO 600 mg BID BENJA Administration CEFTRIAXONE IN IS-OSM DEXTROSE 2 gm in 50 mls @ 100 mls/hr 01/07/18 08:00 07:05 Ceftriaxone 2 Gm-D5w Bag IVPB 100 mls/hr DAILY BENJA Administration Sodium Chloride 1,000 mls @ 125 mls/hr 01/07/18 10:45 01/07/18 12:12 1/2 Normal Saline IV 01/08/18 18:44 0 mls ASDIR BENJA Administration Latanoprost 1 drop 01/07/18 22:00 Xalatan 0.005% Eye Drops - OU HS BENJA Grhhp-9-Uhjv Ethyl Esters 1 gm 01/06/18 10:00 01/07/18 12:42 Lovaza - PO 1 gm BID BENJA Administration Tamsulosin HCl 0.4 mg 01/06/18 22:00 01/06/18 23:22 Flomax - PO 0.4 mg HS BENJA Administration Impression 1. KYLE 2. hematuria 3. bph 4. bladder polyps 5. CAD 6. HTN Plan - KYLE may be secondary to obstruction from clots - repeat labs in am - check renal ultrasound - cont current meds - keep on fluids for now - urine studies will not be accurate secondary to hematuria - will follow Dr Lin
[2018-01-07] MEDS: TAMSULOSIN HCL 0.4 MG CAP.ER.24H (FP) PO SCH (22:21)
[2018-01-07] MEDS: LATANOPROST 0.005% OPHTH SOLN 2.5ML BOTTLE OU SCH (22:22)
--- NOTE | 2018-01-08 08:44 | PN ---
Progress Note (short form) - Note Progress Note: POD #1 - s/p TURP/evacuation of clots under general anesthesia. VSS. Pt. doing well, resting comfortably in bed. No complaints. No apparent anesthetic complications noted. Continue current care.
[2018-01-08 08:56] LABS: CHLORIDE 110 mmol/L (98-107); POTASSIUM 3.9 mmol/L (3.5-5.1); SODIUM 141 mmol/L (136-145)
[2018-01-08 09:05] LABS: ALBUMIN 3.3 g/dl (3.4-5.0); ALK PHOS 32 U/L (45-117); ANION GAP 8 (8-16); BILIRUBIN,TOTAL 0.9 mg/dL (0.2-1.0); BLOOD UREA NITROGEN 21 mg/dL (7-18); CALCIUM 7.2 mg/dL (8.5-10.1); CO2 23 mmol/L (21-32); CREATININE 1.4 mg/dL (0.7-1.3); GLUCOSE,RANDOM 132 mg/dL (74-106); SGOT/AST 9 U/L (15-37); SGPT/ALT 14 U/L (12-78); TOT PROT 5.8 g/dl (6.4-8.2)
[2018-01-08] MEDS ORDERED: PT OWN MED DRAWER 7, Y5N ONE (09:49)
[2018-01-08] MEDS: SODIUM CHLORIDE 0.45% 1,000 ML IV SCH (09:52)
[2018-01-08] MEDS: GEMFIBROZIL 600 MG TABLET (FP) PO SCH ×2 (09:53→21:40)
[2018-01-08] MEDS: DORZOLAMIDE 2% HCL OPHTHALMIC SOLUTION 10 ML BOTTLE OS SCH ×2 (09:53→21:40)
[2018-01-08] MEDS: OMEGA-3 ACID ETHYL ESTERS (FATTY-ACIDS) 1 GM CAPSULE (FP) PO SCH ×2 (09:54→21:40)
[2018-01-08] MEDS: CARVEDILOL 12.5 MG TABLET (FP) PO SCH ×2 (10:04→21:40)
[2018-01-08] MEDS: SACUBITRIL/VALSARTAN 97 MG-103 MG TABLET PO SCH ×2 (10:05→21:41)
[2018-01-08] MEDS: amLODIPine BESYLATE 5 MG TABLET (FP) PO SCH (10:05)
--- NOTE | 2018-01-08 10:48 | PN ---
Progress Note, Physician History of Present Illness: ID Consult dictated Gross hematuria UTI symptoms Hx E coli Urosepsis Pending c/s empiric ceftriaxone - Current Medication List Current Medications: Active Medications Amlodipine Besylate (Norvasc -) 5 mg PO DAILY [facility] Last Admin: 01/08/18 10:05 Dose: Not Given Carvedilol (Coreg -) 12.5 mg PO BID [facility] Last Admin: 01/08/18 10:04 Dose: Not Given Dorzolamide HCl (Trusopt 2%) 1 drop OS BID [facility] Last Admin: 01/08/18 09:53 Dose: 1 drop Eplerenone (Eplerenone) 25 mg PO DAILY@1600 [facility] Last Admin: 01/07/18 17:11 Dose: Not Given Gemfibrozil (Lopid -) 600 mg PO BID [facility] Last Admin: 01/08/18 09:53 Dose: 600 mg CEFTRIAXONE IN IS-OSM DEXTROSE (Ceftriaxone 2 Gm-D5w Bag) 2 gm in 50 mls @ 100 mls/hr IVPB DAILY [facility] Last Admin: 01/07/18 07:05 Dose: 100 mls/hr Sodium Chloride (1/2 Normal Saline) 1,000 mls @ 125 mls/hr IV ASDIR [facility] Stop: 01/08/18 18:44 Last Admin: 01/08/18 09:52 Dose: 125 mls/hr Latanoprost (Xalatan 0.005% Eye Drops -) 1 drop OU [facility] Last Admin: 01/07/18 22:22 Dose: 1 drop Hyeim-2-Klbe Ethyl Esters (Lovaza -) 1 gm PO BID [facility] Last Admin: 01/08/18 09:54 Dose: 1 gm Tamsulosin HCl (Flomax -) 0.4 mg PO HS [facility] Last Admin: 01/07/18 22:21 Dose: 0.4 mg - Objective Vital Signs: Vital Signs Temperature 98.4 F 01/08/18 05:00 Pulse Rate 76 01/08/18 05:00 Respiratory Rate 18 01/08/18 07:00 Blood Pressure 100/60 01/08/18 05:00 O2 Sat by Pulse Oximetry (%) 98 01/08/18 07:00 Labs: CBC, BMP 01/07/18 07:30 01/08/18 08:10 INR, PTT INR 1.19 (0.82-1.09) H 01/06/18 08:20
--- NOTE | 2018-01-08 10:55 | PN ---
Progress Note, Physician History of Present Illness: Awake, alert Seated in bed CBI in progress Pinkish urine No c/o suprapubic or flank pain No fever/ chills WBC WNL - Current Medication List Current Medications: Active Medications Amlodipine Besylate (Norvasc -) 5 mg PO DAILY [facility] Last Admin: 01/08/18 10:05 Dose: Not Given Carvedilol (Coreg -) 12.5 mg PO BID [facility] Last Admin: 01/08/18 10:04 Dose: Not Given Dorzolamide HCl (Trusopt 2%) 1 drop OS BID [facility] Last Admin: 01/08/18 09:53 Dose: 1 drop Eplerenone (Eplerenone) 25 mg PO DAILY@1600 [facility] Last Admin: 01/07/18 17:11 Dose: Not Given Gemfibrozil (Lopid -) 600 mg PO BID [facility] Last Admin: 01/08/18 09:53 Dose: 600 mg CEFTRIAXONE IN IS-OSM DEXTROSE (Ceftriaxone 2 Gm-D5w Bag) 2 gm in 50 mls @ 100 mls/hr IVPB DAILY [facility] [place] Last Admin: 01/07/18 07:05 Dose: 100 mls/hr Sodium Chloride (1/2 Normal Saline) 1,000 mls @ 125 mls/hr IV ASDIR [facility] [place] Stop: 01/08/18 18:44 Last Admin: 01/08/18 09:52 Dose: 125 mls/hr Latanoprost (Xalatan 0.005% Eye Drops -) 1 drop OU HS [facility] Last Admin: 01/07/18 22:22 Dose: 1 drop Mwuwd-7-Fjxi Ethyl Esters (Lovaza -) 1 gm PO BID [facility] Last Admin: 01/08/18 09:54 Dose: 1 gm Tamsulosin HCl (Flomax -) 0.4 mg PO HS [facility] Last Admin: 01/07/18 22:21 Dose: 0.4 mg - Objective Vital Signs: Vital Signs Temperature 98.4 F 01/08/18 05:00 Pulse Rate 76 01/08/18 05:00 Respiratory Rate 18 01/08/18 07:00 Blood Pressure 100/60 01/08/18 05:00 O2 Sat by Pulse Oximetry (%) 98 01/08/18 07:00 Constitutional: Yes: No Distress, Obese Eyes: Yes: Conjunctiva Clear Cardiovascular: Yes: Regular Rate and Rhythm, S1, S2 Respiratory: Yes: CTA Bilaterally Gastrointestinal: Yes: Normal Bowel Sounds, Soft, Abdomen, Obese. No: Tenderness Genitourinary: Yes: Other (CBI in progress) Labs: CBC, BMP 01/07/18 07:30 01/08/18 08:10 INR, PTT INR 1.19 (0.82-1.09) H 01/06/18 08:20 Assessment/Plan S/P Gross hematuria/ cystoscopy S/P dysuria Substitute ceftin 500mg po bid x7d
[2018-01-08] MEDS: CEFTRIAXONE 2 GM-D5W BAG 2 GM/50 ML BAG IVPB SCH (11:35)
--- NOTE | 2018-01-08 16:51 | PN ---
Progress Note (short form) - Note Progress Note: UROLOGY NOTE. pt. s/p turp padilla with cbi is clearing, no clots. plan-d/c cbi in am ,padilla to leg bag in am . pt. is urologicly ok for d/c
[2018-01-08] MEDS: EPLERENONE 25 MG TABLET PO SCH (18:26)
[2018-01-08] MEDS ORDERED: SODIUM CHLORIDE 0.45% 1,000 ML IV SCH (19:15)
--- NOTE | 2018-01-08 19:21 | PN ---
Progress Note, Physician History of Present Illness: Pt seen and examined at bedside. He is awake and alert. He is on CBI. He denies shortness of breath. - Current Medication List Current Medications: Active Medications Amlodipine Besylate (Norvasc -) 5 mg PO DAILY [facility] Last Admin: 01/08/18 10:05 Dose: Not Given Carvedilol (Coreg -) 12.5 mg PO BID [facility] Last Admin: 01/08/18 10:04 Dose: Not Given Dorzolamide HCl (Trusopt 2%) 1 drop OS BID [facility] Last Admin: 01/08/18 09:53 Dose: 1 drop Eplerenone (Eplerenone) 25 mg PO DAILY@1600 [facility] Last Admin: 01/08/18 18:26 Dose: Not Given Gemfibrozil (Lopid -) 600 mg PO BID [facility] Last Admin: 01/08/18 09:53 Dose: 600 mg CEFTRIAXONE IN IS-OSM DEXTROSE (Ceftriaxone 2 Gm-D5w Bag) 2 gm in 50 mls @ 100 mls/hr IVPB DAILY [facility] Last Admin: 01/08/18 11:35 Dose: 100 mls/hr Sodium Chloride (1/2 Normal Saline) 1,000 mls @ 75 mls/hr IV ASDIR [facility] Latanoprost (Xalatan 0.005% Eye Drops -) 1 drop OU [facility] Last Admin: 01/07/18 22:22 Dose: 1 drop Jfywb-0-[id number] Ethyl Esters (Lovaza -) 1 gm PO BID [facility] Last Admin: 01/08/18 09:54 Dose: 1 gm Tamsulosin HCl (Flomax -) 0.4 mg PO [facility] Last Admin: 01/07/18 22:21 Dose: 0.4 mg - Objective Vital Signs: Vital Signs Temperature 99.3 F 01/08/18 15:00 Pulse Rate 84 01/08/18 17:00 Respiratory Rate 20 01/08/18 17:00 Blood Pressure 103/52 01/08/18 17:00 O2 Sat by Pulse Oximetry (%) 96 01/08/18 08:00 Constitutional: Yes: Calm Eyes: Yes: Conjunctiva Clear HENT: Yes: Atraumatic Neck: Yes: Supple Cardiovascular: Yes: S1, S2 Gastrointestinal: Yes: Soft Genitourinary: Yes: Other (cbi) Musculoskeletal: Yes: WNL Edema: No Neurological: Yes: Oriented Psychiatric: Yes: Oriented Labs: CBC, BMP 01/07/18 07:30 01/08/18 08:10 INR, PTT INR 1.19 (0.82-1.09) H 01/06/18 08:20 Problem List - Problems (1) KYLE (acute kidney injury) Code(s): N17.9 - ACUTE KIDNEY FAILURE, UNSPECIFIED (2) HLD (hyperlipidemia) Code(s): E78.5 - HYPERLIPIDEMIA, UNSPECIFIED (3) HTN (hypertension) Code(s): I10 - ESSENTIAL (PRIMARY) HYPERTENSION (4) Hematuria Code(s): R31.9 - HEMATURIA, UNSPECIFIED Assessment/Plan Current Medications Generic Name Dose Route Start Last Admin Trade Name Freq PRN Reason Stop Dose Admin Amlodipine Besylate 5 mg 01/06/18 10:00 01/08/18 10:05 Norvasc - PO Not Given DAILY [facility] Carvedilol 12.5 mg 01/06/18 10:00 01/08/18 10:04 Coreg - PO Not Given BID [facility] Dorzolamide HCl 1 drop 01/06/18 10:00 01/08/18 09:53 Trusopt 2% OS 1 drop BID [facility]ENJA Administration Eplerenone 25 mg 01/06/18 16:00 01/08/18 18:26 Eplerenone PO Not Given DAILY@1600 [facility] Gemfibrozil 600 mg 01/06/18 10:00 01/08/18 09:53 Lopid - PO 600 mg BID BENJA Administration CEFTRIAXONE IN IS-OSM DEXTROSE 2 gm in 50 mls @ 100 mls/hr 01/07/18 08:00 11:35 Ceftriaxone 2 Gm-D5w Bag IVPB 100 mls/hr DAILY BENJA Administration Sodium Chloride 1,000 mls @ 75 mls/hr 01/08/18 19:15 1/2 Normal Saline IV ASDIR BENJA Latanoprost 1 drop 01/07/18 22:00 01/07/18 22:22 Xalatan 0.005% Eye Drops - OU 1 drop HS BENJA Administration Orsbt-0-Uadb Ethyl Esters 1 gm 01/06/18 10:00 01/08/18 09:54 Lovaza - PO 1 gm BID BENJA Administration Tamsulosin HCl 0.4 mg 01/06/18 22:00 01/07/18 22:21 Flomax - PO 0.4 mg HS BENJA Administration Impression 1. KYLE 2. hematuria 3. bph 4. bladder polyps 5. CAD 6. HTN Plan - renal function is improving - etiology likely obstruction from hematoma - follow ultrasound - cont fluids - repeat labs in am - urology follow up - cbi per urology - will follow Dr Lin
--- NOTE | 2018-01-08 19:47 | PN ---
Physical Exam: SUBJECTIVE: Patient seen and examined Patient is comfortable with no acute distress, patient is feeling better, CBI is running. OBJECTIVE: Vital Signs Temperature 99.3 F 01/08/18 15:00 Pulse Rate 84 01/08/18 17:00 Respiratory Rate 20 01/08/18 17:00 Blood Pressure 103/52 01/08/18 17:00 O2 Sat by Pulse Oximetry (%) 96 01/08/18 08:00 GENERAL: The patient is awake, alert, and fully oriented, in no acute distress. HEAD: Normal with no signs of trauma. EYES: PERRL, extraocular movements intact, sclera anicteric, conjunctiva clear. ENT: Ears normal, oropharynx clear without exudates, moist mucous membranes. NECK: Trachea midline, full range of motion, supple. LUNGS: Breath sounds equal, clear to auscultation bilaterally, no wheezes, no crackles, no accessory muscle use. HEART: Regular rate and rhythm, S1, S2 without murmur, rub or gallop. ABDOMEN: Soft, nontender, nondistended, normoactive bowel sounds, no guarding, no rebound, no hepatosplenomegaly, no masses. EXTREMITIES: 2+ pulses, warm, well-perfused, no edema. NEUROLOGICAL: Cranial nerves II through XII grossly intact. Normal speech, gait not observed. PSYCH: Normal mood, normal affect. SKIN: Warm, dry, normal turgor, no rashes or lesions noted : positive for CBI CBCD WBC 5.9 K/mm3 (4.0-10.0) 01/07/18 07:30 RBC 3.95 M/mm3 (4.00-5.60) L 01/07/18 07:30 Hgb 12.7 GM/dL (11.7-16.9) D 01/07/18 07:30 Hct 38.1 % (35.4-49) D 01/07/18 07:30 MCV 96.4 fl (80-96) H 01/07/18 07:30 MCHC 33.4 g/dl (32.0-35.9) 01/07/18 07:30 RDW 13.0 % (11.9-15.9) 01/07/18 07:30 Plt Count 145 K/MM3 (134-434) 01/07/18 07:30 MPV 9.6 fl (7.5-11.1) 01/07/18 07:30 CMP Sodium 141 mmol/L (136-145) 01/08/18 08:10 Potassium 3.9 mmol/L (3.5-5.1) 01/08/18 08:10 Chloride 110 mmol/L (98-107) H 01/08/18 08:10 Carbon Dioxide 23 mmol/L (21-32) 01/08/18 08:10 Anion Gap 8 (8-16) 01/08/18 08:10 BUN 21 mg/dL (7-18) H 01/08/18 08:10 Creatinine 1.4 mg/dL (0.7-1.3) H D 01/08/18 08:10 Creat Clearance w eGFR 50.25 (>60) 01/08/18 08:10 Random Glucose 132 mg/dL (74-106) H 01/08/18 08:10 Calcium 7.2 mg/dL (8.5-10.1) L 01/08/18 08:10 Total Bilirubin 0.9 mg/dL (0.2-1.0) 01/08/18 08:10 AST 9 U/L (15-37) L D 01/08/18 08:10 ALT 14 U/L (12-78) D 01/08/18 08:10 Alkaline Phosphatase 32 U/L (45-117) L D 01/08/18 08:10 Total Protein 5.8 g/dl (6.4-8.2) L D 01/08/18 08:10 Albumin 3.3 g/dl (3.4-5.0) L D 01/08/18 08:10 Current Medications Generic Name Dose Route Start Last Admin Trade Name Freq PRN Reason Stop Dose Admin Amlodipine Besylate 5 mg 01/06/18 10:00 01/08/18 10:05 Norvasc - PO Not Given DAILY [facility] Carvedilol 12.5 mg 01/06/18 10:00 01/08/18 10:04 Coreg - PO Not Given BID BENJA Dorzolamide HCl 1 drop 01/06/18 10:00 01/08/18 09:53 Trusopt 2% OS 1 drop BID BENJA Administration Eplerenone 25 mg 01/06/18 16:00 02/19/18 18:26 Eplerenone PO Not Given DAILY@1600 [facility] Gemfibrozil 600 mg 01/06/18 10:00 01/08/18 09:53 Lopid - PO 600 mg BID [facility]JA Administration CEFTRIAXONE IN IS-OSM DEXTROSE 2 gm in 50 mls @ 100 mls/hr 01/07/18 08:00 11:35 Ceftriaxone 2 Gm-D5w Bag IVPB 100 mls/hr DAILY [facility] Administration Sodium Chloride 1,000 mls @ 75 mls/hr 01/08/18 19:15 1/2 Normal Saline IV ASDIR [facility] Latanoprost 1 drop 01/07/18 22:00 01/07/18 22:22 Xalatan 0.005% Eye Drops - OU 1 drop HS [facility]JA Administration Xzafx-5-Dxnv Ethyl Esters 1 gm 01/06/18 10:00 01/08/18 09:54 Lovaza - PO 1 gm BID [facility]JA Administration Tamsulosin HCl 0.4 mg 01/06/18 22:00 01/07/18 22:21 Flomax - PO 0.4 mg HS BENJA Administration Home Medications Medication Instructions Recorded Amlodipine Besylate [Norvasc -] 5 mg PO DAILY 01/05/18 Ascorbate Calcium [Vitamin C] 500 mg PO DAILY 01/05/18 Bimatoprost [Lumigan] 1 drop IO DAILY 01/05/18 Carvedilol [Coreg -] 12.5 mg PO BID 01/05/18 Cholecalciferol (Vitamin D3) 100 unit PO BID 01/05/18 [Vitamin D3 -] Dicyclomine HCl [Bentyl -] 20 mg PO BID 01/05/18 Docusate Sodium [Colace] 300 mg PO HS 01/05/18 Dorzolamide HCl [Trusopt] 1 drop OS BID 01/05/18 Eplerenone [Inspra] 25 mg PO DAILY 01/05/18 Fluticasone Prop 0.05% Nasal 1 - 2 spray NS DAILY 01/05/18 [Flonase -] Gemfibrozil [Lopid -] 600 mg PO BID 01/05/18 Inulin/Chromium Picolinate [Fiber 1 each PO BID 01/05/18 Gummies] Multivit-Min/Iron Fum/Folic AC 1 each PO DAILY 01/05/18 [Zywox-Bryfziq-Bszzlcbt Tablet] [place]-3/Dha/Epa/Fish Oil [Fish Oil 1 each PO BID 01/05/18 1,200 mg Softgel] Prasterone (Dhea)/Calcium Carb 1 each PO DAILY 01/05/18 [Dhea 50 mg Tablet] Sacubitril/Valsartan [Entresto 97 1 each PO BID 01/05/18 mg-103 mg Tablet] Silodosin [Rapaflo] 8 mg PO DAILY 01/05/18 Ubidecarenone/Vit E Acet [Co Q-10 1 each PO BID 01/05/18 100 mg Softgel] A/P: This is a 67 y/o man who presents to the ED with alana hematuria , admitted for cystoscopy. # Hematuria with BPH s/p TURP improving ,Continue CBI, on IV antibiotic ,Given 2gm of Rocephin pre and post the procedure Discussed with Dr. Chopra. # KYLE due to BPH # CAD s/p AK (2 stents) # HTN stable Continue home meds #HLD Continue Lopid 600 mg po BID # RACHEL continue CPAP at night # DVT Px: OOB, SCDs, Hold ACs due to Hematuria Code Status: Full Code Possible dc in am Visit type - Emergency Visit Emergency Visit: Yes ED Registration Date: 01/06/18 Care time: The patient presented to the Emergency Department on the above date and was hospitalized for further evaluation of their emergent condition. - New Patient This patient is new to me today: No - Critical Care Critical Care patient: No - Discharge Referral Referred to [facility] No
[2018-01-08] MEDS: TAMSULOSIN HCL 0.4 MG CAP.ER.24H (FP) PO SCH (21:40)
[2018-01-08] MEDS: LATANOPROST 0.005% OPHTH SOLN 2.5ML BOTTLE OU SCH (21:40)
[2018-01-09 05:57] VITALS: TEMP 99.1
[2018-01-09] MEDS ORDERED: PT OWN MED DRAWER 7, Y5N ONE (09:44)
[2018-01-09] MEDS: CEFTRIAXONE 2 GM-D5W BAG 2 GM/50 ML BAG IVPB SCH (09:50)
[2018-01-09] MEDS: DORZOLAMIDE 2% HCL OPHTHALMIC SOLUTION 10 ML BOTTLE OS SCH (09:50)
[2018-01-09] MEDS: SACUBITRIL/VALSARTAN 97 MG-103 MG TABLET PO SCH (09:51)
[2018-01-09] MEDS: CARVEDILOL 12.5 MG TABLET (FP) PO SCH (09:51)
[2018-01-09] MEDS: OMEGA-3 ACID ETHYL ESTERS (FATTY-ACIDS) 1 GM CAPSULE (FP) PO SCH (09:51)
[2018-01-09] MEDS: GEMFIBROZIL 600 MG TABLET (FP) PO SCH (09:51)
[2018-01-09] MEDS: amLODIPine BESYLATE 5 MG TABLET (FP) PO SCH (09:51)
[2018-01-09 11:56] VITALS: BP 118/64; PULSE 69
[2018-01-09] MEDS ORDERED: CEFUROXIME AXETIL 500 MG TABLET PO SCH (12:45)
--- NOTE | 2018-01-09 13:24 | DS ---
Physical Exam: SUBJECTIVE: Patient seen and examined at bedside. no acute events over night. denies nay fever, chills, N/V/D/C. Padilla in place with maroon urine but improved compare to day of procedure. OBJECTIVE: Vital Signs Period Temp Pulse Resp BP Sys/Pascual Pulse Ox Last 24 Hr 98.9 F-99.3 F 69-98 19-20 102-129/52-66 95-99 PHYSICAL EXAM GENERAL: The patient is awake, alert, and fully oriented, in no acute distress. HEAD: Normal with no signs of trauma. EYES: sclera anicteric, conjunctiva clear. ENT: moist mucous membranes. NECK: full range of motion, supple. LUNGS: Breath sounds equal, clear to auscultation bilaterally, no wheezes, no crackles, no accessory muscle use. HEART: Regular rate and rhythm, S1, S2 without murmur, rub or gallop. ABDOMEN: Obese, Soft, nontender, nondistended, normoactive bowel sounds, no guarding, Padilla in place with maroon urine. EXTREMITIES: 2+ pulses, warm, well-perfused, no edema. NEUROLOGICAL: No focal deficit . Normal speech, gait not observed. PSYCH: Normal mood, normal affect. SKIN: Warm, dry, LABS CBC, BMP 01/07/18 07:30 01/08/18 08:10 HOSPITAL COURSE: Date of Admission:01/06/18 Date of Discharge: 01/09/18 This is a 67 yo M with PMH of bladder polyps, HTN, HLD, DM, CAD s/p PCI, BPH, RACHEL, who presented to ER due to recurrent hematuria and found to have KYLE. Work up revealed that KYLE was post renal due to BPH and blood clot, which was evacuated TURP cystoscopy. Renal function and hematuria improved and patient was discharged home on POD2 with a padilla catheter and on Ceftin 500 bid for 7 days. Patient was instructed to follow with Dr Lin renal and Dr Chopra urology. For HTN (hypertension), stable will continue home meds Norvasc 5 mg po daily, Coreg 12.5 mg po BID ,cont Entresto 1 tab BID (97-103),cont Eplerenon 25 mg po daily For HLD (hyperlipidemia) Continue Lopid (Gemfibrizole )600 mg po BID.For RACHEL ( obstructive sleep apnea)continue CPAP at night. pt is stable and hemodynamically stable to DC home and follow up as out pt. Minutes to complete discharge: 40 Discharge Summary Reason For Visit: HEMATURIA,ABDOMINAL PAIN Current Active Problems DVT prophylaxis (Acute) HLD (hyperlipidemia) (Chronic) HTN (hypertension) (Chronic) RACHEL (obstructive sleep apnea) (Chronic) Condition: Stable - Instructions Diet, Activity, Other Instructions: You were admitted to the hospital due to hematuria (blood in urine ) and Cystoscopy was done by Dr.Nayel Chopra to remove the blood clots. Please follow up with your primary care physician within one week please follow up with within one week Please take your meds as prescribed. Please use antibiotics ceftin 500mg oral twice daily x7days If you develop fever, chills , or you notice blood again in urine call 911 or return to Emergency as soon as possible. Referrals: Tolu Boateng MD [Primary Care Provider] - 1 Week Surekha Lin MD [Staff Physician] - 1 Week Mike Chopra MD [Staff Physician] - 1 Week Disposition: HOME - Home Medications Comprehensive Discharge Medication List: Ambulatory Orders Amlodipine Besylate [Norvasc -] 5 mg PO DAILY 01/05/18 Ascorbate Calcium [Vitamin C] 500 mg PO DAILY 01/05/18 Bimatoprost [Lumigan] 1 drop IO DAILY 01/05/18 Carvedilol [Coreg -] 12.5 mg PO BID 01/05/18 Cholecalciferol (Vitamin D3) [Vitamin D -] 100 unit PO BID 01/05/18 Dicyclomine HCl [Bentyl -] 20 mg PO BID 01/05/18 Docusate Sodium [Colace] 300 mg PO HS 01/05/18 Dorzolamide HCl [Trusopt] 1 drop OS BID 01/05/18 Eplerenone [Inspra] 25 mg PO DAILY 01/05/18 Fluticasone Prop 0.05% Nasal [Flonase -] 1 - 2 spray NS DAILY 01/05/18 Gemfibrozil [Lopid -] 600 mg PO BID 01/05/18 Inulin/Chromium Picolinate [Fiber Gummies] 1 each PO BID 01/05/18 Multivit-Min/Iron Fum/Folic AC [Giiii-Wagelbf-Tbabwjsx Tablet] 1 each PO DAILY 01/05/18 [place]-3/Dha/Epa/Fish Oil [Fish Oil 1,200 mg Softgel] 1 each PO BID 01/05/18 Prasterone (Dhea)/Calcium Carb [Dhea 50 mg Tablet] 1 each PO DAILY 01/05/18 Sacubitril/Valsartan [Entresto 97 mg-103 mg Tablet] 1 each PO BID 01/05/18 Silodosin [Rapaflo] 8 mg PO DAILY 01/05/18 Ubidecarenone/Vit E Acet [Co Q-10 100 mg Softgel] 1 each PO BID 01/05/18 Cefuroxime Axetil [Ceftin -] 500 mg PO BID #12 tablet 01/09/18 This patient is new to me today: No Emergency Visit: Yes ED Registration Date: 01/06/18 Care time: The patient presented to the Emergency Department on the above date and was hospitalized for further evaluation of their emergent condition. Critical Care patient: No - Discharge Referral Referred to [facility] No
--- NOTE | 2018-01-10 13:04 | PATH ---
Surgical Pathology Report Patient Name: PRIYANK SHELTON [facility]. Rec. #: [id number] /Age/Gender: 1950 (Age: 67) / M Account: [id number] Location: [address] [place] [address] Taken: 01/07/2018 Received: 01/08/2018 Reported: 01/10/2018 Physicians: Jhonathan Chopra M.D. Specimen(s) Received A: CLOTS FROM BLADDER B: PROSTATE TISSUE Clinical History Hematuria Final Diagnosis A. BLADDER, CLOT, EVACUATION: BLOOD/FIBRIN CLOT AND SCANT BENIGN PROSTATIC TISSUE. B. PROSTATE TISSUE, TRANSURETHRAL RESECTION OF PROSTATE: BENIGN PROSTATIC TISSUE WITH FOCAL ACUTE AND CHRONIC INFLAMMATION, CYSTIC CHANGES, GLANDULAR AND STROMAL HYPERPLASIA. Electronically Signed Leana Thomas M.D. Gross Description A. Received in formalin labeled "clot from bladder," is a 15.0 x 12.5 x 1.8 cm aggregate of red-brown blood clot. There is minimal amezquita soft tissue identified. Field Account Manager sections are submitted in 2 cassettes. B. Received in formalin labeled "prostate tissue," is a 28 g, 11.0 x 9.0 x 0.8 cm aggregate of amezquita, irregular, firm to rubbery portions of tissue admixed with blood clot, consistent with prostate tissue. A public health representative portion is submitted in 12 cassettes. 01/08/201801/08/2018
--- NOTE | 2018-03-12 18:16 | OP ---
DATE OF OPERATION: 01/07/2018 PREOPERATIVE DIAGNOSIS: Clot retention, obstructive prostate, and urinary retention. POSTOPERATIVE DIAGNOSIS: Clot retention, large hemorrhagic prostate, large hemorrhagic trigone of bladder. OPERATIVE PROCEDURE: Cystourethroscopy, evacuation of clot, transurethral resection of prostate, transurethral resection of bladder lesion, and vaporization of prostate tissue. ANESTHESIA: General. DESCRIPTION OF PROCEDURE: Under the above stated anesthesia, the patient was prepped and draped in the usual sterile manner. He was placed in the dorsal lithotomy position. External genitalia appeared within normal limits. Phallus was normal. Meatus was adequate. Testes were normal in size and consistency. No nodes or hydroceles were elicited. A 30-degree scope was introduced under direct vision and anterior urethra was within normal limits. Prostatic urethra revealed trilobar hypertrophy of the prostate. There was lateral lobe kissing. There was also generalized bleeding of the prostate. Inspection of the bladder revealed a large amount of clot. Therefore, using vigorous irrigation with an Ellik evacuator, the clots were evacuated. Approximately 1500 mL of clot was evacuated. Ureteral orifices were visualized. They appeared to excrete clear urine. No overt lesions were seen in the dome and lateral cabrera of the bladder. The trigone appeared to be elevated and hemorrhagic, indicative of a subcervical prostate lobe; therefore, a resectoscope was inserted. The base of the prostate was resected down to the muscle layer of the trigone. The same thing was then performed to the prostate at the 6 o'clock position and moving on up to the 12 o'clock position of the right lateral lobe. Afterwards, the left lobe was resected from the 6 o'clock position to the 12 o'clock position. Lastly, the median lobe was resected. Hemostasis was secured with electrocoagulation. Prostate chips were evacuated with an Ellik evacuator. Excess prostate tissue was then vaporized with a VaporTrode. Again, extra prostatic pieces were removed with an Ellik evacuator. No active bleeding was noted. The bladder was emptied. The scope was removed. A 24-[place] 3-way 30-mL Morales was inserted. This was connected to continuous bladder irrigation. The patient tolerated the procedure well. He returned to the recovery room in good condition. Mone DE LA [id number]
== END 2018-01-09 13:48 | disposition home or self-care (01) ==
LOC: JER 23:18 → JERBED 01-06 05:13 → UNDOADMOB 01-06 06:08 → J6S 01-07 00:41
PROVIDERS: ADMIT Internal Medicine; ATTEND Internal Medicine
PROC: 0TCB8ZZ Extirpation of Matter from Bladder, Via Natural or Artificial Opening Endoscopic (ICD-10-PCS; principal; 2018-01-06)
PROC: 0VB08ZZ Excision of Prostate, Via Natural or Artificial Opening Endoscopic (ICD-10-PCS; 2018-01-06)
PROC: 0V508ZZ Destruction of Prostate, Via Natural or Artificial Opening Endoscopic (ICD-10-PCS; 2018-01-06)
PROC: 3E03329 Introduction of Other Anti-infective into Peripheral Vein, Percutaneous Approach (ICD-10-PCS; 2018-01-06)
PROC: 3E0337Z Introduction of Electrolytic and Water Balance Substance into Peripheral Vein, Percutaneous Approach (ICD-10-PCS; 2018-01-06)
DX: R31.0 Gross hematuria (principal); R10.9 Unspecified abdominal pain; R33.9 Retention of urine, unspecified; N40.0 Benign prostatic hyperplasia without lower urinary tract symptoms; N41.1 Chronic prostatitis; N32.89 Other specified disorders of bladder; N17.9 Acute kidney failure, unspecified; I10 Essential (primary) hypertension; I25.10 Atherosclerotic heart disease of native coronary artery without angina pectoris; I25.2 Old myocardial infarction; E78.5 Hyperlipidemia, unspecified; R73.03 Prediabetes; H40.9 Unspecified glaucoma; G47.33 Obstructive sleep apnea (adult) (pediatric); K64.8 Other hemorrhoids; Z95.5 Presence of coronary angioplasty implant and graft; Z99.89 Dependence on other enabling machines and devices; E66.9 Obesity, unspecified; Z68.31 Body mass index [BMI] 31.0-31.9, adult
CPT/HCPCS: 36415; 71045-TC-FY; 80048; 80053; 81003; 85025; 85610; 86850; 86900; 86901; 87086; 88304-TC; 88305-TC; 93005; 93010; 94010; 94760; 96374; 96375; 96376; 99284-25; G0378; J7030

== ENCOUNTER 2018-11-23 11:04 | Day surgery (SDC) | payer OTHER, MEDICARE ==
[2018-11-21 17:25] VITALS: BMI 30.7
[2018-11-23] MEDS ORDERED: ceFAZolin SODIUM 1 GM VIAL IVPB ONE (13:58)
[2018-11-23] MEDS ORDERED: HYDROmorphone HCl 2 MG/ML VIAL IVPUSH ONE (14:01)
[2018-11-23] MEDS ORDERED: ACETAMINOPHEN 325 MG TABLET (FP) PO PRN (14:01)
[2018-11-23] MEDS ORDERED: MIDAZOLAM HCL 2 MG/2 ML SINGLE DOSE VIAL ONE (14:10)
--- NOTE | 2018-11-23 14:43 | OP ---
Operative Note - Note: Operative Date: 11/23/18 Pre-Operative Diagnosis: bph with luts and hematuria Operation: tuvp/turp Findings: bleeding prostate gland, grade 2-3 t trabeculated bladder Post-Operative Diagnosis: Same as Pre-op Surgeon: Mike Chopra Anesthesia: General Specimens Removed: prostate tissue Estimated Blood Loss (mls): 40 Drains, Volume Out (mls): 0 Blood Volume Replaced (mls): 0 Fluid Volume Replaced (mls): 0 Operative Report Dictated: Yes
[2018-11-23] MEDS ORDERED: oxyCODONE HCL 5 MG TABLET PO PRN (14:49)
[2018-11-23] MEDS ORDERED: ONDANSETRON 4 MG/2 ML VIAL IVPUSH PRN (14:49)
--- NOTE | 2018-11-23 15:22 | OP ---
DATE OF OPERATION: 11/23/2018 PREOPERATIVE DIAGNOSES: Obstructive uropathy, gross hematuria intermittently. OPERATIVE PROCEDURE: Cystourethroscopy, transurethral vaporization, transurethral resection of prostate. ANESTHESIA: Spinal. Under above-stated anesthesia patient was prepped and draped in the usual sterile manner. He was placed in the dorsal lithotomy position. External genitalia revealed a normal phallus, adequate meatus, testes were normal in size and consistency. No hernias or hydroceles were elicited. Anterior urethra using a 30-degree continuous-flow scope was within normal limits. Prostatic urethra revealed bilobar hypertrophy of the prostate. The right lobe was injected and hemorrhagic. The verumontanum was also injected. The bladder was entered. Urine was collected for culture and cytology. Inspection of the bladder revealed a grade 2 to 3 trabeculation. No overt lesions or calculi were seen. Ureteral orifices were within normal limits with efflux of clear urine bilaterally. Dome and lateral cabrera were within normal limits. A bipolar VaporTrode was introduced and vaporization of the prostate was commenced in the usual fashion by commencing at the 6 o'clock position of the right lateral lobe and moving on to the 12 o'clock position. The same thing was done to the left lateral lobe. Excess tissue was resected with a resectoscope. Prostate tissue was evacuated with an Oviceversa evacuator. No active bleeding was noted. Therefore the scope was removed. The bladder was emptied. A 24-Spanish 2-way 33-mL Morales catheter was inserted. This was connected to a drainage bag. The patient tolerated the procedure. He returned to the recovery room in good condition. Mone DE LA [id number]
[2018-11-23 20:40] VITALS: BP 123/76; PULSE 60; TEMP 97.9
--- NOTE | 2018-11-27 13:55 | PATH ---
Cytology Non-Gynecological Report Patient Name: PRIYANK SHELTON [facility]. Rec. #: [id number] /Age/Gender: 1950 (Age: 68) / M Account: [id number] Location: [facility] Taken: 11/23/2018 Received: 11/26/2018 Reported: 11/27/2018 Physicians: Mike Chopra M.D. Specimen(s) Received URINE VOIDED Clinical History Urine Final Diagnosis URINE FOR CYTOLOGY: SATISFACTORY FOR EVALUATION. NEGATIVE FOR HIGH GRADE UROTHELIAL CARCINOMA. SCATTERED UROTHELIAL CELLS AND FEW SQUAMOUS EPITHELIAL CELLS PRESENT. Electronically Signed Leana Thomas M.D. Gross Description Approximately 50 cc of yellow fluid received fresh. One cytofunnel prepared and Pap stained.
== END 2018-11-23 17:40 | disposition home or self-care (01) ==
LOC: JASU-SURG 11:04
PROVIDERS: ATTEND Urology
PROC: 0VT08ZZ Resection of Prostate, Via Natural or Artificial Opening Endoscopic (ICD-10-PCS; principal; 2018-11-23 13:00)
DX: N40.1 Benign prostatic hyperplasia with lower urinary tract symptoms (principal); R31.0 Gross hematuria; N13.8 Other obstructive and reflux uropathy
CPT/HCPCS: 88108; 94760

== ENCOUNTER 2019-02-14 19:09 | Emergency (ER) | payer OTHER, MEDICARE ==
[2019-02-14 19:12] VITALS: BMI 31.1
--- NOTE | 2019-02-14 19:31 | PDOC ---
History of Present Illness - General Chief Complaint: Bleeding from Anus Stated Complaint: RECTAL BLEEDING Time Seen by Provider: 02/14/19 19:28 History Source: Patient, Old Records Exam Limitations: No Limitations - History of Present Illness Initial Comments: HPI: 68 y/o male presenting to [facility] ER complaining of painless rectal bleeding that started early this morning. Endorses four episodes of heavy bleeding over the course of the day. Has a h/o of hemorrhoidal bleeding. Last episode of heavy bleeding was approx. one year ago. Did not seek medical attention at that time. Has not followed with a colorectal surgeon. No recent antibiotic usage. Dr. Foster performed internal hemorrhoidal banding x3 in Jun 2015 Takes baby ASA and Monroe 3 daily. PCP: Dr. Boateng GI: Dr. Khan Medical Hx: - CAD s/p stent - HTN - HLD - BPH s/p TURP x4, last Nov [address] Chopra - [facility] - Internal and external hemorrhoids, s/p banding 06/2015 Past History - Past Medical History Allergies/Adverse Reactions: Allergies Allergy/AdvReac Type Severity Reaction Status Date / Time No Known Drug Allergies Allergy Verified 02/14/19 19:12 Home Medications: Ambulatory Orders Amlodipine Besylate [Norvasc -] 5 mg PO DAILY 01/05/18 Ascorbate Calcium [Vitamin C] 500 mg PO DAILY 01/05/18 Bimatoprost [Lumigan] 1 drop OU DAILY 01/05/18 Carvedilol [Coreg -] 12.5 mg PO BID 01/05/18 Cholecalciferol (Vitamin D3) [Vitamin D -] 100 unit PO BID 01/05/18 Docusate Sodium [Colace] 300 mg PO HS 01/05/18 Dorzolamide HCl [Trusopt] 1 drop OS BID 01/05/18 Fluticasone Prop 0.05% Nasal [Flonase -] 1 - 2 spray NS DAILY 01/05/18 Gemfibrozil [Lopid -] 600 mg PO BID 01/05/18 Multivit-Min/Iron Fum/Folic AC [Aosbd-Zcqbjia-Whotognc Tablet] 1 each PO DAILY 01/05/18 Monroe-3/Dha/Epa/Fish Oil [Fish Oil 1,200 mg Softgel] 1 each PO BID 01/05/18 Prasterone (Dhea)/Calcium Carb [Dhea 50 mg Tablet] 1 each PO DAILY 01/05/18 Sacubitril/Valsartan [Entresto 97 mg-103 mg Tablet] 1 each PO BID 01/05/18 Aspirin Coated [Ecotrin -] 81 mg PO DAILY 11/21/18 Netarsudil Mesylate [Rhopressa] 2.5 ml OS DAILY 11/21/18 Bimatoprost [Lumigan] 1 drop IO DAILY 02/14/19 Eplerenone 25 mg PO DAILY 02/14/19 Finasteride [Proscar] 5 mg PO HS 02/14/19 Metoclopramide HCl [Reglan] 10 mg PO TID 02/14/19 Netarsudil Mesylate [Rhopressa] 2.5 ml OP DAILY 02/14/19 Tamsulosin HCl [Flomax] 0.4 mg PO HS 02/14/19 Anemia: No Asthma: No Cancer: No Cardiac Disorders: Yes (AR 2009/ stents) CVA: No COPD: No CHF: No Dementia: No Diabetes: No GI Disorders: Yes (HEMORRHOIDS,RECTAL BLEEDING) Disorders: Yes (BPH) HTN: Yes Hypercholesterolemia: Yes Liver Disease: No Seizures: No Thyroid Disease: No - Surgical History Abdominal Surgery: No Appendectomy: No Cardiac Surgery: Yes (CARDIAC STENT X2, 2009, 2010) Cholecystectomy: No Lung Surgery: No Neurologic Surgery: No Orthopedic Surgery: No Other Surgical History: Internal Hemorrhoidal Banding x3 [place] [address] Foster - Immunization History Immunization Up to Date: Yes - Suicide/Smoking/Psychosocial Hx Smoking Status: No Smoking History: Never smoked Number of Cigarettes Smoked Daily: 0 Cigars Per Day: 0 Hx Alcohol Use: Yes (rarely) Drug/Substance Use Hx: No Substance Use Type: Alcohol Hx Substance Use Treatment: No Review of Systems - Review of Systems Able to Perform ROS?: Yes Comments:: In addition to that documented in the HPI above, the additional ROS was obtained : Constitutional: Denies fevers, chills, lightheadedness, dizziness, or syncope Head: Denies vision changes ENMT: Denies sore throat CV: Denies chest pain Resp: Denies SOB GI: Denies vomiting or diarrhea : Denies painful urination MSK: Denies recent trauma Skin: Denies new rashes Neuro: Denies new numbness or tingling or weakness Endocrine: Denies polyuria Heme: Bleeding from rectum *Physical Exam - Vital Signs Last Vital Signs Temp Pulse Resp BP Pulse Ox 97.6 F 76 18 117/71 95 02/14/19 19:10 02/14/19 19:10 02/14/19 19:10 02/14/19 19:10 02/14/19 19:10 - Physical Exam Comments: Constitutional: Well-developed, well-nourished, nontoxic adult male in no acute distress or obvious discomfort. Found standing next to hospital bed. Alert and oriented x4. Answered all questions appropriately and completely. Speech was non -labored, non-pressured. Head: Normocephalic. No obvious external signs of trauma. Eyes: Sclerae white. Conjunctiva moist and not injected. Ears: Hearing grossly intact. Nose: No nasal discharge. Neck: Supple, trachea is midline. Cardiovascular / Chest: Regular rate and regular rhythm. No murmur, rubs, clicks, or gallops. Peripheral pulses: radial pulses full. Respiratory: Breathing unlabored. Equal chest rise and fall. Clear to auscultation bilaterally. No stridor, no wheezing, no rhonchi. Gastrointestinal: abdomen is soft, non-tender, non-distended. Neuro: Alert and oriented. Moving all four extremities spontaneously. Skin: [place], warm, dry, and intact. Psych: Affect: appropriate. Mood: normal. Male Rectal: Good sphincter tone. Multiple external hemorrhoids, largest at 12 o clock position. Engorged internal hemorrhoid at 12 oclock position. Positive for bright red blood in the perirectal area without active bleeding. Blood on gloved finger. RN chaperoned exam. ED Treatment Course - LABORATORY CBC & Chemistry Diagram: 02/14/19 20:15 02/14/19 20:15 - ADDITIONAL ORDERS Additional order review: 02/14/19 02/14/19 20:15 20:15 PT with INR 13.90 H INR 1.18 H PTT (Actin FS) 39.8 H Sodium 139 Potassium 3.8 Chloride 105 Carbon Dioxide 21 Anion Gap 12 BUN 19 H Creatinine 1.2 Creat Clearance w eGFR 59.86 Random Glucose 143 H Calcium 8.7 Total Bilirubin 0.9 AST 13 L ALT 20 Alkaline Phosphatase 51 Total Protein 7.5 Albumin 4.4 02/14/19 20:15 RBC 4.36 MCV 94.8 MCHC 34.3 RDW 12.8 D MPV 9.2 Neutrophils % 53.5 Lymphocytes % 31.5 Monocytes % 10.3 H Eosinophils % 4.1 D Basophils % 0.6 Medical Decision Making - Medical Decision Making *Reviewed vital signs, nursing notes, and prior visit documentation (if available). 68 y/o male presenting for hemorrhoidal bleeding. H/o of similar but worse today. Afebrile. Vitals unremarkable for hypotension or tachycardia. Clinically well appearing. Will obtain CBC, CMP, and coags to further evaluate. CBC unremarkable for anemia. CMP unremarkable for significant electrolyte derangement. Coags unconcerning. 20:[address] Khan through office answering service. Awaiting call back. 20:[address] Khan. Verbally appraised of the pts HPI, ED course, and current plan of management. Will evaluate further in clinic. Pt reasessed. Reports the bleeding has resolved for now. Repeat vitals signs unremarkable for hypotension or tachycardia. Discussed imaging and laboratory results with pt. Answered all questions. Provided return precautions. Pt expressed verbal understanding and agreement with plan to discharge home with outpatient follow up. Provided UpToDate beyond the basics hemorrhoidal packet. *DC/Admit/Observation/Transfer Diagnosis at time of Disposition: Bleeding internal hemorrhoids - Discharge Dispostion Disposition: HOME Condition at time of disposition: Good Decision to Admit order: No - Referrals Referrals: Tolu Boateng MD [Primary Care Provider] - Ho Khan MD [Staff Physician] - Oren Sanchez MD [Staff Physician] - - Patient Instructions Printed Discharge Instructions: DI for Hemorrhoids Additional Instructions: You were seen today for rectal bleeding. The bleeding is likely from an internal hemorrhoid, similar to what you had banded in the past. Your vital signs and blood work were normal today. You may continue to have some bleeding from the area over the next few days. Be sure to take your stool softner and try to reduce straining with defecation. I called and discussed your symptoms with Dr. Khan. He would like you to follow up with him in the office. You will need to call to make an appointment. The number is included in the packet. You can also follow up with a general surgeon. I have also placed a referral for you to see Dr. Sanchez. You will need to call to make an appointment. The number is included in the packet. Go to the nearest emergency department if your condition worsens or you feel like you need additional emergency evaluation. Print Language: ROMANIAN - Post Discharge Activity
--- NOTE | 2019-02-14 20:03 | PDOC ---
Attending Attestation - [facility] HPI: 02/14/19 20:15 The patient is a 68 year old male with a significant PMH of VT s/p stents, hemorrhoids, BPH, HTN, and HLD who presents to the emergency department with rectal bleeding today. Patient states he noticed the blood in his stool. He also notes the rectal bleeding was dripping onto his bed, but denies any now while in the ED. Denies seeing any blood clots earlier today. Denies any associated abdominal pain. Patient states he had 3 internal hemorrhoids banded several years ago by Dr. Mccoy. Patient followed up with Dr. Khna, GI, one year ago. Last colonoscopy was 4 years ago. Not currently on antiobiotics. Denies any changes in his medications recently. The patient denies abdominal pain, chest pain, shortness of breath, headache, lightheadedness, and dizziness. Denies fever, chills, nausea, vomit, diarrhea and constipation. Denies dysuria, frequency, urgency and hematuria. Allergies: NKA Past surgical history: Cardiac stents Social history: No reported alcohol, drug or cigarette use. PCP: Dr. Langley - Physicial Exam PE: 02/14/19 20:22 ADULT PHYSICAL EXAM Constitutional: Awake, alert, oriented. No acute distress. Not pale appearing. Eyes: PERRL. EOMI. Conjunctivae are not pale. ENT: Mucous membranes are moist and intact. Posterior pharynx without exudates or erythema. Uvula midline. Neck: Supple. Full ROM. No lymphadenopathy. Cardiovascular: Regular rate. Regular rhythm. S1, S2 regular. Distal pulses are 2+ and symmetric. Pulmonary/Chest: No evidence of respiratory distress. Clear to auscultation bilaterally No wheezing, rales or rhonchi. Abdominal: Soft and non-distended. There is no tenderness. No rebound, guarding or rigidity. No organomegaly. No palpable masses. Good bowel sounds. Musculoskeletal: No edema. No cyanosis. No clubbing. Full range of motion in all extremities. Nocalf tenderness. Radial/pedal pulses are intact and 2+ bilaterally Skin: Skin is warm and dry. No petechiae. No purpura. Neurological: Alert and oriented to person, place, and time. Cranial nerves II -XII are grossly intact. Normal speech. Strength is grossly symmetric. No sensory deficits. Psychiatric: Good eye contact. Normal interaction, affect and behavior. <Amarilis Fields - Last Filed: 02/14/19 20:16> - Resident Resident Name: Brandon Gallardo - ED Attending Attestation I have performed the following: I have examined & evaluated the patient, The case was reviewed & discussed with the resident, I agree w/resident's findings & plan, Exceptions are as noted - Medical Decision Making 02/14/19 20:03 I, Dr. Malka Bonilla, DO, attest that this document has been prepared under my direction and personally reviewed by me in its entirety. I further attest, that it accurately reflects all work, treatment, procedures and medical decision -making performed by me. 02/14/19 20:26 a/p: 68yo male with rectal bleeding -hx of hemorrhoid bleeding -hx of banding of internal hemorrhoids in the past -follows with Dr. Khan -no abd pain -no cp/sob/lightheadedness -BRBPR on exam -will send labs, will discuss with Dr. Khan -will monitor and reassess -pt on asa and fish oil 02/14/19 21:27 hemoglobin stable at 14 not actively bleeding in the ED resident discussed the case with Dr. Khan who will see the patient in the office 02/14/19 21:41 pt feeling better will follow up with Dr. Khan as an outpt for banding of his hemorrhoids <Malka Bonilla - Last Filed: 02/14/19 21:42>
[2019-02-14 20:40] LABS: BASO % 0.6 % (0-2.0); EOS % 4.1 % (0-4.5); HEMATOCRIT 41.3 % (35.4-49); HEMOGLOBIN 14.2 GM/dL (11.7-16.9); LYMPH % 31.5 % (8-40); MCH 32.5 pg (25.7-33.7); MCHC 34.3 g/dl (32.0-35.9); MEAN CELL VOLUME 94.8 fl (80-96); MEAN PLT VOLUME 9.2 fl (7.5-11.1); MONO % 10.3 % (3.8-10.2); NEUT % 53.5 % (42.8-82.8); PLATELET COUNT 166 K/MM3 (134-434); RBC 4.36 M/mm3 (4.00-5.60); RDW 12.8 % (11.9-15.9); WHITE BLOOD COUNT 4.8 K/mm3 (4.0-10.0)
[2019-02-14 20:53] LABS: ALBUMIN 4.4 g/dl (3.4-5.0); ALK PHOS 51 U/L (45-117); ANION GAP 12 MMOL/L (8-16); BILIRUBIN,TOTAL 0.9 mg/dL (0.2-1); BLOOD UREA NITROGEN 19 mg/dL (7-18); CALCIUM 8.7 mg/dL (8.5-10.1); CHLORIDE 105 mmol/L (98-107); CO2 21 mmol/L (21-32); CREATININE 1.2 mg/dL (0.55-1.3); GLUCOSE,RANDOM 143 mg/dL (74-106); POTASSIUM 3.8 mmol/L (3.5-5.1); SGOT/AST 13 U/L (15-37); SGPT/ALT 20 U/L (13-61); SODIUM 139 mmol/L (136-145); TOT PROT 7.5 g/dl (6.4-8.2)
[2019-02-14 20:57] LABS: INR 1.18 (0.83-1.09); PROTHROMBIN TIME (PATIENT) 13.9 SEC (9.7-13.0)
[2019-02-14 20:59] LABS: ACTIVATED PTT 39.8 SECONDS (25.2-36.5)
[2019-02-14 21:43] VITALS: BP 107/68; PULSE 72; TEMP 98.2
== END 2019-02-14 21:56 | disposition home or self-care (01) ==
LOC: JER 19:09
DX: K64.8 Other hemorrhoids (principal); I25.10 Atherosclerotic heart disease of native coronary artery without angina pectoris; I10 Essential (primary) hypertension; Z95.5 Presence of coronary angioplasty implant and graft; I25.2 Old myocardial infarction; E78.5 Hyperlipidemia, unspecified; N40.0 Benign prostatic hyperplasia without lower urinary tract symptoms; G47.33 Obstructive sleep apnea (adult) (pediatric)
CPT/HCPCS: 36415; 80053; 85025; 85610; 85730; 99282-25

== ENCOUNTER 2019-03-05 09:29 | Day surgery (SDC) | payer OTHER, MEDICARE ==
[2019-03-05 09:45] VITALS: BMI 31.1
[2019-03-05] MEDS ORDERED: LIDOCAINE HCL 2% JELLY 10 ML CARTRIDGE ONE (10:04)
[2019-03-05] MEDS ORDERED: LIDOCAINE HCL 2% JELLY 10 ML CARTRIDGE TP ONE (11:20)
[2019-03-05 11:35] VITALS: TEMP 98
[2019-03-05 12:14] VITALS: BP 107/50; PULSE 60
== END 2019-03-05 12:22 | disposition home or self-care (01) ==
LOC: JASU-ENDO 09:29
PROVIDERS: ATTEND Internal Medicine Gastroenterology
PROC: 06LY4CC Occlusion of Hemorrhoidal Plexus with Extraluminal Device, Percutaneous Endoscopic Approach (ICD-10-PCS; principal; 2019-03-05 11:30)
DX: Z86.010 Personal history of colon polyps (principal); K64.8 Other hemorrhoids